=== PATIENT | female | born 1950 | race Caucasian/White ===

== ENCOUNTER 2017-04-20 09:41 | Inpatient (IN) | payer MEDICARE, BC ==
[~2017-04-20] VITALS: Ht 157.5 cm; Wt 107.9 kg
[2017-04-20] MEDS: LEVOTHYROXINE SODIUM 125 MCG TAB PO SCH (06:00)
[~2017-04-20 09:41] MED LIST: ALBUAER3 INH; ATOR20TA15 PO; CETI-1 PO; DIAZ10TA PO; DIPH25CA PO; DOCU100C15 PO; FEXO60TA PO; FLUT50SP EACH NARE; FURO40TA PO; LETR2.5T PO; LEVO125T4 PO; LOPE2TAB21 PO; MAPA500T PO; MULTTAB67 PO; OMEP40CA2 PO; PRIS50TA PO; SILE6TAB3 PO; SPIR25TA3 PO; VALS1TAB64 PO
[2017-04-20 10:00] VITALS: BP 123/64; PULSE 101; RESP 18; TEMP 98.5; O2SAT 97
[2017-04-20] MEDS ORDERED: RESP: ALBUTEROL 2.5 MG/IPRATROPIUM 0.5 MG NEB (SCH) NEB ONE (10:00)
--- NOTE | 2017-04-20 10:35 | PD ---
HPI Chief Complaint: Cold / Flu Symptoms Time Seen by Provider: 09:48 Travel History International Travel<30 days: No Contact w/Intl Traveler<30days: No Traveled to known affect area: No History of Present Illness HPI 67-year-old female came to the emergency room with history of cough and generalized weakness for past 10 days. Patient says she has not felt very good for almost 3 months now and has been getting frequent sickness in the form of URI on and off. Patient has history of G6PD deficiency and sees coater carbon paper from [facility]. Patient gets her iron transfusion at the clinic. Upon asking she said she had mentioned about her illness to the coater carbon paper there. She did mention it to her primary care and was put on one course of Z-Solo in the recent past. Patient also identifies the onset of her symptoms around the time when her septic tank was getting cleaned. She says that there was a lot of foul odor coming to her house during that time and she had lit a lot of incense lamps. After which she started feeling some scratchiness in her throat and the cough started. Patient has never been diagnosed with asthma or COPD but she does have inhalers that she uses at home. Patient is not a smoker and does not live among smokers. She was slightly tachycardic in triage. Patient says she occasionally gets some chills. [facility] Past Medical History Narrative Medical List of her past medical, surgical, social and family history is reviewed from the nursing note. Social History Tobacco Use: No Allergies-Medications (Allergen,Severity, Reaction): Coded Allergies: Sulfa (Sulfonamide Antibiotics) (Unverified Allergy, Severe, 04/20/17) blueberry (Unverified Allergy, Severe, 04/20/17) ciprofloxacin (Unverified Allergy, Severe, 04/20/17) diclofenac (Unverified Allergy, Severe, Bleeding, 04/20/17) etodolac (Unverified Allergy, Severe, Bleeding, 04/20/17) flurbiprofen (Unverified Allergy, Severe, Bleeding, 04/20/17) ibuprofen (Unverified Allergy, Severe, Bleeding, 04/20/17) indomethacin (Unverified Allergy, Severe, Bleeding, 04/20/17) ketoprofen (Unverified Allergy, Severe, Bleeding, 04/20/17) ketorolac (Unverified Allergy, Severe, Bleeding, 04/20/17) moxifloxacin (Unverified Allergy, Severe, Itching, 04/20/17) naproxen (Unverified Allergy, Severe, Bleeding, 04/20/17) oxaprozin (Unverified Allergy, Severe, Bleeding, 04/20/17) Uncoded Allergies: Beans (Allergy, Severe, 11/04/16) red wine (Allergy, Severe, 11/04/16) soya food (Allergy, Severe, 11/04/16) tonic water (Allergy, Severe, 11/04/16) Comments List of her allergies reviewed from the nursing note. Reported Meds & Prescriptions Reported Meds & Active Scripts Active Reported Valsartan 80 Mg Tab 80 Mg PO DAILY Spironolactone-Hydrochlorothiazide 25-25 Mg Tab 1 Tab PO DAILY Multiple Vitamin 1 Tab 1 Tab PO DAILY Omeprazole 40 Mg Cap 40 Mg PO BID Loperamide (Loperamide HCl) 2 Mg Tablet 1 Tab PO PRN Levothyroxine (Levothyroxine Sodium) 125 Mcg Tab 125 Mcg PO DAILY Letrozole 2.5 Mg Tab 1 Tab PO DAILY Furosemide 40 Mg Tab 40 Mg PO DAILY Fluticasone Nasal [place] 50 Mcg/Act Naspr 50 Mcg EACH NARE BID 50 mcg/spray Fexofenadine (Fexofenadine HCl) 60 Mg Tab 60 Mg PO DAILY Silenor (Doxepin (Sleep)) 6 Mg Tab 6 Mg PO HS Docusate Sodium 100 Mg Cap 100 Mg PO BID Diphenhydramine (Diphenhydramine HCl) 25 Mg Cap 25 Mg PO HS PRN Diazepam 10 Mg Tab 10 Mg PO DAILY PRN Zyrtec (Cetirizine HCl) 10 Mg Tablet 1 Tab PO DAILY PRN Pristiq 24 HR (Desvenlafaxine ER 24 HR) 50 Mg Tab 50 Mg PO DAILY Atorvastatin (Atorvastatin Calcium) 20 Mg Tab 20 Mg PO HS Proair Hfa 8.5 GM Inh (Albuterol Sulfate) 90 Mcg/Act Aer 2 Puff INH Q4-6H PRN 108 mcg/actuation Mapap (Acetaminophen) 500 Mg Tab 500 Mg PO PRN PRN Narrative Medication List of her home medications reviewed from the nursing note. Review of Systems Except as stated in HPI: all other systems reviewed are Neg Respiratory: Positive: Cough Neurologic: Positive: Weakness Physical Exam Narrative GENERAL: Awake, alert, mild distress SKIN: Focused skin assessment warm/dry. Pale HEAD: Atraumatic. Normocephalic. EYES: Pupils equal and round. No scleral icterus. No injection or drainage. ENT: No nasal bleeding or discharge. Mucous membranes pink and moist. NECK: Trachea midline. No JVD. CARDIOVASCULAR: Regular rate and rhythm. No murmur appreciated. RESPIRATORY: No accessory muscle use. End expiratory wheeze. GASTROINTESTINAL: Abdomen soft, non-tender, soft but distended. Hepatic and splenic margins not palpable. MUSCULOSKELETAL: No obvious deformities. No clubbing. No cyanosis. No edema. NEUROLOGICAL: Awake and alert. No obvious cranial nerve deficits. Motor grossly within normal limits. Normal speech. PSYCHIATRIC: Appropriate mood and affect; insight and judgment normal. Data Data Last Documented VS Orders Orders Complete Blood Count With Diff (04/20/17 10:00) Comprehensive Metabolic Panel (04/20/17 10:00) Troponin I (04/20/17 10:00) B-Type Natriuretic Peptide (04/20/17 10:00) Telescope Repairer / Telemetry HILDA.Q8H (04/20/17 10:00) Electrocardiogram (04/20/17 ) Chest, Pa & Lat (04/20/17 ) Albuterol-Ipratropium Neb (Duoneb Neb) (04/20/17 10:00) C-Reactive Protein (Crp) (04/20/17 10:00) Westergren Sedimentation Rate (04/20/17 10:00) Ceftriaxone Inj (Rocephin Inj) (04/20/17 11:45) Azithromycin Inj (Zithromax Inj) (04/20/17 11:45) Blood Culture (04/20/17 11:36) Pneumococcal Urinary Antigen (04/20/17 12:14) Legionella Urinary Antigen (04/20/17 12:14) Admit Order (Ed Use Only) (04/20/17 12:20) Influenzae A/B Antigen (04/20/17 12:18) Labs Laboratory Tests Test 04/20/17 10:15 White Blood Count 8.7 TH/MM3 Red Blood Count 3.49 MIL/MM3 Hemoglobin 11.2 GM/DL Hematocrit 34.4 % Mean Corpuscular Volume 98.8 FL Mean Corpuscular Hemoglobin 32.2 PG Mean Corpuscular Hemoglobin Concent 32.6 % Red Cell Distribution Width 14.8 % Platelet Count 369 TH/MM3 Mean Platelet Volume 7.8 FL Neutrophils (%) (Auto) 72.3 % Lymphocytes (%) (Auto) 11.6 % Monocytes (%) (Auto) 8.7 % Eosinophils (%) (Auto) 6.6 % Basophils (%) (Auto) 0.8 % Neutrophils # (Auto) 6.3 TH/MM3 Lymphocytes # (Auto) 1.0 TH/MM3 Monocytes # (Auto) 0.8 TH/MM3 Eosinophils # (Auto) 0.6 TH/MM3 Basophils # (Auto) 0.1 TH/MM3 CBC Comment AUTO DIFF Differential Total Cells Counted 100 Neutrophils % (Manual) 72 % Band Neutrophils % 7 % Lymphocytes % 8 % Monocytes % 7 % Eosinophils % 5 % Basophils % 1 % Neutrophils # (Manual) 6.9 TH/MM3 Differential Comment FINAL DIFF MANUAL Platelet Estimate NORMAL Platelet Morphology Comment NORMAL Polychromasia 2.8 % Erythrocyte Sedimentation Rate 48 mm/hr Blood Urea Nitrogen 17 MG/DL Creatinine 0.94 MG/DL Random Glucose 150 MG/DL Total Protein 8.0 GM/DL Albumin 3.5 GM/DL Calcium Level 8.9 MG/DL Alkaline Phosphatase 153 U/L Aspartate Amino Transf (AST/SGOT) 90 U/L Alanine Aminotransferase (ALT/SGPT) 50 U/L Total Bilirubin 0.5 MG/DL Sodium Level 135 MEQ/L Potassium Level 5.4 MEQ/L Chloride Level 101 MEQ/L Carbon Dioxide Level 26.4 MEQ/L Anion Gap 8 MEQ/L Estimat Glomerular Filtration Rate 59 ML/MIN Troponin I LESS THAN 0.02 NG/ML C-Reactive Protein 6.17 MG/DL B-Type Natriuretic Peptide 24 PG/ML [facility] Medical Decision Making Medical Screen Exam Complete: Yes Emergency Medical Condition: Yes Medical Record Reviewed: Yes Interpretation(s) Normal sinus rhythm, normal axis, quadrigeminy, nonspecific ST-T wave changes. Heart rate of 98 bpm Differential Diagnosis Bronchitis, COPD exacerbation, pneumonia, CHF Narrative Course 10:25 AM awaiting for the blood test results and chest x-ray. She is given a dose of DuoNeb. 12:21 PM blood test results are back and CBC shows significant leftward shift, elevated sedimentation rate and elevated CRP. Based on this and her symptoms I' m concerned for pneumonia. Chest x-ray showed peribronchial cuffing but I have started her on IV Rocephin and IV Zithromax. Given the fact that patient has been sick for a few weeks now and not getting better with outpatient treatment I explained to her she would require admission and she agreed. Patient told me that she has a little dog that has been very sick lately with various infections that her Vet is trying to treat. I discussed the case with the residents and let them know about this extra information. In my opinion patient should get ID and cardiology consult. Procedures EKG Prior to Arrival: No Diagnosis Primary Impression: Pneumonia Qualified Codes: J18.9 - Pneumonia, unspecified organism Additional Impressions: Ventricular quadrigeminy Failure of outpatient treatment Admitting Information Admitting Physician Requests: Admit Scripts Benzonatate (Tessalon Perles) 100 Mg Cap 100 MG PO TID Y for COUGH, #30 CAP 0 Refills Prov: Melony Silva MD R1 04/22/17 Amoxicillin (Amoxicillin) 500 Mg Cap 1000 MG PO TID for Infection for 7 Days, #42 CAP 0 Refills Prov: Meloyn Silva MD R1 04/22/17 Shawn Ortega MD Apr 20, 2017 10:35
[2017-04-20 10:36] LABS: AUTOMATED NEUTROPHIL # 6.3 TH/MM3 (1.8-7.7); BASOPHIL # 0.1 TH/MM3 (0-0.2); BASOPHIL % 0.8 % (0.0-2.0); EOSINOPHIL # 0.6 TH/MM3 (0-0.4); EOSINOPHIL % 6.6 % (0.0-4.0); HEMATOCRIT 34.4 % (35.0-46.0); HEMO FLAGS AUTO DIFF; LYMPH % 11.6 % (9.0-44.0); MEAN CELL VOLUME 98.8 FL (80.0-100.0); MEAN CORPUSCULAR HEMOGLOBIN 32.2 PG (27.0-34.0); MEAN CORPUSCULAR HGB CONC 32.6 % (32.0-36.0); MONO % 8.7 % (0.0-8.0); NEUT % 72.3 % (16.0-70.0); PLATELET COUNT 369 TH/MM3 (150-450); RED BLOOD COUNT 3.49 MIL/MM3 (4.00-5.30); RED CELL DISTRIBUTION WIDTH 14.8 % (11.6-17.2); WHITE BLOOD COUNT 8.7 TH/MM3 (4.0-11.0)
--- NOTE | 2017-04-20 10:39 | RADRPT ---
EXAM DATE/TIME: 04/20/2017 10:23 [place] COMPARISON: No previous studies available for comparison. EXTERNAL COMPARISON : [facility] March 02, 2017 INDICATIONS : Cough and cold like symptoms for 10 days. Short of breath. MEDICAL HISTORY : Carcinoma, breast. SURGICAL HISTORY : Total knee replacement, right. ENCOUNTER: Initial ACUITY: 1 week PAIN SCORE: 0/10 LOCATION: Bilateral chest FINDINGS: PA and lateral views of the chest demonstrate the lungs to be symmetrically aerated without evidence of mass, infiltrate or effusion. Minimal bibasilar peribronchial thickening is evident. The cardiome diastinal contours are unremarkable. Osseous structures are intact. CONCLUSION: Minimal bibasilar peribronchial thickening without infiltrate or failure.. Matteo Ledezma MD FACR on April 20, 2017 at 10:36 Board Certified Radiologist. This report was verified electronically.
[2017-04-20 11:00] VITALS: O2SAT 100
[2017-04-20 11:05] LABS: ALKALINE PHOSPHATASE 153 U/L (45-117); ALT (GPT) 50 U/L (10-53); TOTAL BILIRUBIN ADULT 0.5 MG/DL (0.2-1.0)
[2017-04-20 11:06] LABS: ANION GAP 8 MEQ/L (5-15); AST (GOT) 90 U/L (15-37); BICARBONATE 26.4 MEQ/L (21.0-32.0); BLOOD UREA NITROGEN 17 MG/DL (7-18); CHLORIDE 101 MEQ/L (98-107); GLOMERULAR FILTRATION RATE 59 ML/MIN (>89); POTASSIUM 5.4 MEQ/L (3.5-5.1); SODIUM (NA) 135 MEQ/L (136-145)
[2017-04-20 11:20] LABS: BANDS 7 % (0-6); BASOPHILS 1 % (0-2); EOSINOPHILS 5 % (0-4); NEUTROPHIL # MANUAL DIFF 6.9 TH/MM3 (1.8-7.7); POLYS (SEG NEUTROPHILS) 72 % (16-70); WBC DIFF SAMPLE 100
[2017-04-20 11:21] LABS: PLATELET ESTIMATE SMEAR NORMAL (NORMAL); PLATELET MORPHOLOGY NORMAL (NORMAL); POLYCHROMASIA 2.8 % (0.0-1.9); SCAN/DIFF FINAL DIFF MANUAL
[2017-04-20] MEDS ORDERED: cefTRIAXone INJ 1,000 MG in SODIUM CHLORIDE 0.9% INJ 100 ML IV ONE (11:45)
[2017-04-20] MEDS ORDERED: AZITHROMYCIN INJ 500 MG in SODIUM CHLOR 0.9% 250 ML INJ 250 ML IV ONE (11:45)
--- NOTE | 2017-04-20 12:59 | HHI.HP ---
HPI Service Family Medicine Primary Care Physician Unknown Admission Diagnosis pneumonia, outpatient treatment failure, quadrigeminy Diagnoses: International Travel<30 Days: No Contact w/Intl Traveler<30days: No Known Affected Area: No History of Present Illness Ms. Watson is a 67 year old female with a past medical history of G6PD, asthma, and hypertension presenting to the ED today with malaise and cough of about 1.5 weeks duration. She states that she's been sick on and off since January. She had been feeling fatigue and malaise for that time period. She went to [facility] in [place] on March 02 with a prescribed her a Z- Solo. She states that she took the whole course but it did not work. She called them back and they stated they'll take 3 weeks to work. She then felt better later. However, on last Tuesday (9 days ago) she was having her septic tank cleaned out. A foul odor went into her home. She got some oil diffusers to mask the scent and kept them near her for about 20 hours a day for the next few days. The second day of this her throat started to feel sore and she felt congested. After the smell went away she was still feeling sick. Today however she felt better. She also had a breathing treatment in the ED and felt much better. For the past week she has had chills and feelings of being hot and cold. She has also experienced night sweats a few days ago. She has also had a cough that she describes as deep and sometimes making her gag. Nonproductive. No nausea or vomiting, no chest pain, no pleuritic pain. She also mentioned that her [place] dog is sick and wondered if he could have transmitted some kind of illness to her. When changes on her EKG were discussed patient states that she had a nuclear stress test about a year ago and an EKG a few months ago. (Melony Silva MD R1) Review of Systems Constitutional: COMPLAINS OF: Chills, Change in appetite, DENIES: Weight loss, Dizziness (has Lightheadedness) Eyes: DENIES: Blurred vision Ears, nose, mouth, throat: COMPLAINS OF: Vertigo (2-3 weeks ago), Running Nose (went away with flonase), DENIES: Tinnitus Respiratory: COMPLAINS OF: Cough, Shortness of breath (going up stairs) Cardiovascular: DENIES: Chest pain, Palpitations, Lower Extremity Edema Gastrointestinal: DENIES: Bloody stools, Constipation, Diarrhea, Nausea, Vomiting Genitourinary: DENIES: Urinary frequency, Urinary incontinence Musculoskeletal: DENIES: Muscle aches, Joint Swelling Integumentary: COMPLAINS OF: Rash (from blood transfusions) Hematologic/lymphatic: DENIES: Bruising, Lymphadenopathy Neurologic: COMPLAINS OF: Headache, Poor Balance, DENIES: Paresthesias Psychiatric: COMPLAINS OF: Depression, DENIES: Anxiety (Melony Silva MD R1) Past Family Social History Past Medical History GAVE (gastric antral vascular ectasia) syndrome G6PD Anxiety Depression Asthma HTN Hypothyroidism Past Surgical History Right Knee Replacement D&C Left Lumpectomy with radiation- breast cancer in remission Tonsillectomy Reported Medications Reported Meds & Active Scripts Active Reported Valsartan 80 Mg Tab 80 Mg PO DAILY Spironolactone-Hydrochlorothiazide 25-25 Mg Tab 1 Tab PO DAILY Multiple Vitamin 1 Tab 1 Tab PO DAILY Omeprazole 40 Mg Cap 40 Mg PO BID Loperamide (Loperamide HCl) 2 Mg Tablet 1 Tab PO PRN Levothyroxine (Levothyroxine Sodium) 125 Mcg Tab 125 Mcg PO DAILY Letrozole 2.5 Mg Tab 1 Tab PO DAILY Furosemide 40 Mg Tab 40 Mg PO DAILY Fluticasone Nasal [place] 50 Mcg/Act Naspr 50 Mcg EACH NARE BID 50 mcg/spray Fexofenadine (Fexofenadine HCl) 60 Mg Tab 60 Mg PO DAILY Silenor (Doxepin (Sleep)) 6 Mg Tab 6 Mg PO HS Docusate Sodium 100 Mg Cap 100 Mg PO BID Diphenhydramine (Diphenhydramine HCl) 25 Mg Cap 25 Mg PO HS PRN Diazepam 10 Mg Tab 10 Mg PO DAILY PRN Zyrtec (Cetirizine HCl) 10 Mg Tablet 1 Tab PO DAILY PRN Pristiq 24 HR (Desvenlafaxine ER 24 HR) 50 Mg Tab 50 Mg PO DAILY Atorvastatin (Atorvastatin Calcium) 20 Mg Tab 20 Mg PO HS Proair Hfa 8.5 GM Inh (Albuterol Sulfate) 90 Mcg/Act Aer 2 Puff INH Q4-6H PRN 108 mcg/actuation Mapap (Acetaminophen) 500 Mg Tab 500 Mg PO PRN PRN (Melony Silva MD R1) Allergies: Coded Allergies: Sulfa (Sulfonamide Antibiotics) (Unverified Allergy, Severe, 04/20/17) blueberry (Unverified Allergy, Severe, 04/20/17) ciprofloxacin (Unverified Allergy, Severe, 04/20/17) diclofenac (Unverified Allergy, Severe, Bleeding, 04/20/17) etodolac (Unverified Allergy, Severe, Bleeding, 04/20/17) flurbiprofen (Unverified Allergy, Severe, Bleeding, 04/20/17) ibuprofen (Unverified Allergy, Severe, Bleeding, 04/20/17) indomethacin (Unverified Allergy, Severe, Bleeding, 04/20/17) ketoprofen (Unverified Allergy, Severe, Bleeding, 04/20/17) ketorolac (Unverified Allergy, Severe, Bleeding, 04/20/17) moxifloxacin (Unverified Allergy, Severe, Itching, 04/20/17) naproxen (Unverified Allergy, Severe, Bleeding, 04/20/17) oxaprozin (Unverified Allergy, Severe, Bleeding, 04/20/17) Uncoded Allergies: Beans (Allergy, Severe, 11/04/16) red wine (Allergy, Severe, 11/04/16) soya food (Allergy, Severe, 11/04/16) tonic water (Allergy, Severe, 11/04/16) Family History Mother- at 95, Alzheimers Father- at 70 of heart disease Social History lives with her dog in [place] Alcohol- none, but 2x/yr Tobacco- quit 14 yrs ago Illicit drugs- none (Melony Silva MD R1) Physical Exam Vital Signs Vital Signs Date Time Temp Pulse Resp B/P (MAP) Pulse Ox O2 Delivery O2 Flow Rate FiO2 04/20/17 11:00 98 16 100 Room Air 04/20/17 10:00 98.5 101 18 123/64 (83) 97 Physical Exam GENERAL: This is a well-nourished, well-developed obese patient sitting on bed, in no apparent distress. SKIN: No ecchymoses or lesions. Cool and dry. Midline scar on right knee. Hyperpigmented areas on anterior legs. HEAD: Atraumatic. Normocephalic. EYES: Pupils equal round and reactive. Extraocular motions intact. No scleral icterus. No injection or drainage. ENT: Nose without bleeding, purulent drainage or septal hematoma. Throat without erythema, tonsillar hypertrophy or exudate. Uvula midline. Airway patent. NECK: Trachea midline. No JVD or lymphadenopathy. Supple, nontender, no meningeal signs. CARDIOVASCULAR: Regular rate and rhythm without murmurs, gallops, or rubs. RESPIRATORY: Clear to auscultation. Breath sounds equal bilaterally. No wheezes , rales, or rhonchi. GASTROINTESTINAL: Abdomen soft, non-tender, nondistended. No hepato-splenomegaly , or palpable masses. No guarding. MUSCULOSKELETAL: Extremities without clubbing, cyanosis, or edema. No joint tenderness, effusion, or edema noted. No calf tenderness. NEUROLOGICAL: Awake and alert. Motor and sensory grossly within normal limits. Normal speech. Laboratory Laboratory Tests Test 04/20/17 10:15 White Blood Count 8.7 Red Blood Count 3.49 Hemoglobin 11.2 Hematocrit 34.4 Mean Corpuscular Volume 98.8 Mean Corpuscular Hemoglobin 32.2 Mean Corpuscular Hemoglobin Concent 32.6 Red Cell Distribution Width 14.8 Platelet Count 369 Mean Platelet Volume 7.8 Neutrophils (%) (Auto) 72.3 Lymphocytes (%) (Auto) 11.6 Monocytes (%) (Auto) 8.7 Eosinophils (%) (Auto) 6.6 Basophils (%) (Auto) 0.8 Neutrophils # (Auto) 6.3 Lymphocytes # (Auto) 1.0 Monocytes # (Auto) 0.8 Eosinophils # (Auto) 0.6 Basophils # (Auto) 0.1 CBC Comment AUTO DIFF Differential Total Cells Counted 100 Neutrophils % (Manual) 72 Band Neutrophils % 7 Lymphocytes % 8 Monocytes % 7 Eosinophils % 5 Basophils % 1 Neutrophils # (Manual) 6.9 Differential Comment FINAL DIFF MANUAL Platelet Estimate NORMAL Platelet Morphology Comment NORMAL Polychromasia 2.8 Erythrocyte Sedimentation Rate 48 Blood Urea Nitrogen 17 Creatinine 0.94 Random Glucose 150 Total Protein 8.0 Albumin 3.5 Calcium Level 8.9 Alkaline Phosphatase 153 Aspartate Amino Transf (AST/SGOT) 90 Alanine Aminotransferase (ALT/SGPT) 50 Total Bilirubin 0.5 Sodium Level 135 Potassium Level 5.4 Chloride Level 101 Carbon Dioxide Level 26.4 Anion Gap 8 Estimat Glomerular Filtration Rate 59 Troponin I LESS THAN 0.02 C-Reactive Protein 6.17 B-Type Natriuretic Peptide 24 (Melony Silva MD R1) Result Diagram: 04/20/17 1015 04/20/17 1015 Imaging Last Impressions Chest X-Ray 04/20/17 0000 Signed Impressions: Service Date/Time: Thursday, April 20, 2017 10:23 - CONCLUSION: Minimal bibasilar peribronchial thickening without infiltrate or failure.. Matteo Ledezma MD FACR (Melony Silva MD R1) Caprini VTE Risk Assessment Caprini VTE Risk Assessment: Mod/High Risk (score >= 2) Caprini Risk Assessment Model Point Value = 1 Point Value = 2 Point Value = 3 Point Value = 5 Age 41-60 Minor surgery BMI > 25 kg/m2 Swollen legs Varicose veins or History of unexplained or recurrent spontaneous Oral contraceptives or hormone replacement Sepsis (< 1 month) Serious lung disease, including pneumonia (< 1 month) Abnormal pulmonary function Acute myocardial infarction Congestive heart failure (< 1 month) History of inflammatory bowel disease Medical patient at bed rest Age 61-74 Arthroscopic surgery Major open surgery (> 45 min) Laparoscopic surgery (> 45 min) Malignancy Confined to bed (> 72 hours) Immobilizing plaster cast Central venous access Age >= 75 History of VTE Family history of VTE Factor V Leiden Prothrombin [id number] Lupus anticoagulant Anticardiolipin antibodies Elevated serum homocysteine Heparin-induced thrombocytopenia Other congenital or acquired thrombophilia Stroke (< 1 month) Elective arthroplasty Hip, pelvis, or leg fracture Acute spinal cord injury (< 1 month) Prophylaxis Regimen Total Risk Factor Score Risk Level Prophylaxis Regimen 0-1 Low Early ambulation 2 Moderate Order ONE of the following: *Sequential Compression Device (SCD) *Heparin 5000 units SQ BID 3-4 Higher Order ONE of the following medications: *Heparin 5000 units SQ TID *Enoxaparin/Lovenox 40 mg SQ daily (WT < 150 kg, CrCl > 30 mL/min) *Enoxaparin/Lovenox 30 mg SQ daily (WT < 150 kg, CrCl > 10-29 mL/min) *Enoxaparin/Lovenox 30 mg SQ BID (WT < 150 kg, CrCl > 30 mL/min) AND/OR *Sequential Compression Device (SCD) 5 or more Highest Order ONE of the following medications: *Heparin 5000 units SQ TID (Preferred with Epidurals) *Enoxaparin/Lovenox 40 mg SQ daily (WT < 150 kg, CrCl > 30 mL/min) *Enoxaparin/Lovenox 30 mg SQ daily (WT < 150 kg, CrCl > 10-29 mL/min) *Enoxaparin/Lovenox 30 mg SQ BID (WT < 150 kg, CrCl > 30 mL/min) AND *Sequential Compression Device (SCD) (Melony Silva MD R1) Assessment and Plan Assessment and Plan 67-year-old female with past medical history G6PD and hypertension presenting with cough and malaise of about 1 week duration. She is being admitted for possible pneumonia. Code Status Full Code Discussed Condition With Dr. Iverson (Melony Silva MD R1) Attending Attestation THIS CASE WAS DISCUSSED WITH THE RESIDENT PHYSICIANS. I HAVE REVIEWED THE RECORD AND AGREE WITH THE ABOVE NOTE AND PLAN OF CARE WAS DISCUSSED. I HAVE AUTHORIZED THE ORDER FOR ADMISSION TO AN IN-PATIENT STATUS. (Mahamed Rosas MD) Problem List: (1) Pneumonia ICD Codes: J18.9 - Pneumonia, unspecified organism Status: Acute Plan: Fatigue and malaise of a few months duration. Cough, sore throat, and congestion of about 1 week duration. No leukocytosis, but slight left shift in WBCs. CXR at admission showed PA and lateral views of the chest demonstrate the lungs to be symmetrically aerated without evidence of mass, infiltrate or effusion. Minimal bibasilar peribronchial thickening is evident. DDx: URI vs Influenza vs pneumonia * 1 dose of Azithromycin 500 mg IV given in ED for suspected pneumonia * Continue qD * 1 dose of ceftriaxone 1 g IV given in the ED suspected pneumonia * Continue qD * Ordered rapid influenza test, results pending * Influenza vaccine * Streptococcal pneumoniae and Legionella urine antigens pending * Blood cultures pending (2) Ventricular quadrigeminy ICD Codes: I49.3 - Ventricular premature depolarization Status: Acute Plan: EKG in ED showed sinus rhythm with frequent ectopic PVCs every 4th beat. Patient without CP, had a clear nuclear stress test 1 yr ago. * Monitor with telemetry (3) G6PD deficiency ICD Codes: D55.0 - Anemia due to bkqojzm-3-uziihrcop dehydrogenase [G6PD] deficiency Status: Chronic Plan: * Avoid drugs known to trigger hemolysis * Watch for signs of acute hemolytic anemia (4) Hypertension ICD Codes: I10 - Essential (primary) hypertension Status: Chronic Plan: Blood pressure well controlled in the ED * Continue at home medications * HCTZ-spironolactone 25-25 mg po daily * Valsartan 80 mg po daily * Held furosemide since patient says that she takes it once every 2-3 months * Atorvastatin 20 mg for hyperlipidemia (5) Asthma ICD Codes: J45.909 - Unspecified asthma, uncomplicated Status: Chronic Plan: * Continue patient's at-home albuterol inhaler as needed * Duo nebs every 4 hours as needed * At-home cetirizine converted to loratadine 10 mg by mouth daily * Fluticasone (6) Hypothyroidism ICD Codes: E03.9 - Hypothyroidism, unspecified Status: Chronic Plan: * Continue at home levothyroxine 125 g daily (7) GAVE (gastric antral vascular ectasia) ICD Codes: K31.819 - Angiodysplasia of stomach and duodenum without bleeding Status: Chronic Plan: * Converted at home omeprazole to pantoprazole 40 mg po BID (8) Hx of breast cancer ICD Codes: Z85.3 - Personal history of malignant neoplasm of breast Status: Chronic Plan: * Continue at home medication of letrozole 2.5 mg po daily (9) Depression ICD Codes: F32.9 - Major depressive disorder, single episode, unspecified Status: Chronic Plan: * Continue at home Desvenlafaxine 50mg po daily (10) FEN Status: Acute Plan: Fluids: tolerating PO Electrolytes: hyperkalemia noted on admission (repeat BMP shows WNL), monitor and replete as needed Nutrition: Regular diet DVT Prophylaxis: Early ambulation.Lovenox 40mg subQ q24hr GI Prophylaxis: Continue at-home medications Sleep: Continue at-home diphenhydramine and diazepam Pain management/Fever: Tylenol (Melony Silva MD R1) Physician Certification 2 Midnight Certification Type: Admission for Inpatient Services Order for Inpatient Services The services are ordered in accordance with Medicare regulations or non- Medicare payer requirements, as applicable. In the case of services not specified as inpatient-only, they are appropriately provided as inpatient services in accordance with the 2-midnight benchmark. Estimated LOS (days): 2 days is the estimated time the patient will need to remain in the hospital, assuming treatment plan goals are met and no additional complications. Post-Hospital Plan: Home (Melony Silva MD R1) Problem Qualifiers (1) Pneumonia: Qualified Codes: J18.9 - Pneumonia, unspecified organism Melony Silva MD R1 Apr 20, 2017 12:59 Mahamed Rosas MD Apr 21, 2017 11:10
[2017-04-20] MEDS ORDERED: SENNOSIDES 8.6 MG TAB PO PRN (13:30)
[2017-04-20] MEDS ORDERED: SODIUM CHLORIDE 0.9% FLUSH 10 ML FLUSH IV FLUSH PRN (13:30)
[2017-04-20] MEDS ORDERED: ONDANSETRON HCL 4 MG/2 ML VIAL IVP PRN (13:30)
[2017-04-20] MEDS ORDERED: BISACODYL 10 MG SUPP RECTAL PRN (13:30)
[2017-04-20] MEDS ORDERED: LACTULOSE SYRUP 20 GM/30 ML CUP PO PRN (13:30)
[2017-04-20] MEDS ORDERED: NALOXONE HCL 0.4 MG/ML AMP IV PUSH PRN (13:30)
[2017-04-20] MEDS ORDERED: ACETAMINOPHEN 325 MG TAB PO PRN (13:30)
[2017-04-20] MEDS ORDERED: MAGNESIUM HYDROXIDE SUSP 30 ML CUP PO PRN (13:30)
[2017-04-20 13:43] VITALS: BP 113/66; PULSE 77; RESP 18; TEMP 97.8; O2SAT 95
[2017-04-20] MEDS ORDERED: CETIRIZINE HCL 10 MG TAB PO PRN (14:30)
[2017-04-20] MEDS ORDERED: LOPERAMIDE HCL PO SCH (14:30)
[2017-04-20] MEDS ORDERED: ALBUTEROL SULFATE 90 MCG/ACT HFA 8 GM INHALER INH PRN (14:30)
[2017-04-20] MEDS: ENOXAPARIN SODIUM 40 MG/0.4 ML SYRINGE SQ SCH (15:57)
[2017-04-20 16:01] VITALS: PULSE 89
[2017-04-20 16:02] VITALS: BP 108/62; PULSE 89; RESP 17; TEMP 98.9; O2SAT 94
[2017-04-20 17:07] LABS: BICARBONATE 28.9 MEQ/L (21.0-32.0); POTASSIUM 3.8 MEQ/L (3.5-5.1)
[2017-04-20 20:00] VITALS: BP 98/55; PULSE 92; RESP 18; TEMP 98.2; O2SAT 94
[2017-04-20] MEDS ORDERED: NON-FORMULARY DRUG (Omeprazole 40 MG) PO SCH (21:00)
[2017-04-20] MEDS: DOCUSATE SODIUM 50 MG/SENNA 8.6 MG TAB PO SCH ×2 (21:00→21:58)
[2017-04-20] MEDS: PANTOPRAZOLE SOD 40 MG DELAYED RELEASE TAB PO SCH (21:56)
[2017-04-20] MEDS: ATORVASTATIN 20 MG TAB PO SCH (21:56)
[2017-04-20] MEDS: DIAZEPAM 10 MG TAB PO PRN (21:57)
[2017-04-20] MEDS: diphenhydrAMINE HCL 25 MG CAP PO PRN (21:58)
[2017-04-20] MEDS: FLUTICASONE PROPIONATE 50 MCG/ACT 16 GM NASAL SPRAY EACH NARE SCH (21:59)
[2017-04-20] MEDS: SODIUM CHLORIDE 0.9% FLUSH 10 ML FLUSH IV FLUSH SCH (21:59)
[2017-04-20] MEDS: RESP: ALBUTEROL 2.5 MG/IPRATROPIUM 0.5 MG NEB (SCH) NEB (22:07)
[2017-04-21] VITALS (10 sets, daily range): BP systolic 102–149; BP diastolic 53–78; PULSE 80–100; RESP 18–21; TEMP 97.8–98.4; O2SAT 93–99
[2017-04-21] MEDS: LEVOTHYROXINE SODIUM 125 MCG TAB PO SCH (06:14)
[2017-04-21 06:44] LABS: ALKALINE PHOSPHATASE 134 U/L (45-117); TOTAL BILIRUBIN ADULT 0.3 MG/DL (0.2-1.0)
[2017-04-21 06:52] LABS: ALT (GPT) 37 U/L (10-53); ANION GAP 9 MEQ/L (5-15); AST (GOT) 45 U/L (15-37); BICARBONATE 26.2 MEQ/L (21.0-32.0); BLOOD UREA NITROGEN 17 MG/DL (7-18); CHLORIDE 103 MEQ/L (98-107); GLOMERULAR FILTRATION RATE 58 ML/MIN (>89); SODIUM (NA) 138 MEQ/L (136-145)
[2017-04-21 06:58] LABS: AUTOMATED NEUTROPHIL # 5.2 TH/MM3 (1.8-7.7); BASOPHIL # 0.1 TH/MM3 (0-0.2); EOSINOPHIL # 0.6 TH/MM3 (0-0.4); EOSINOPHIL % 6.9 % (0.0-4.0); HEMATOCRIT 35.3 % (35.0-46.0); HEMO FLAGS DIFF FINAL; LYMPH % 17.8 % (9.0-44.0); LYMPHOCYTE # 1.4 TH/MM3 (1.0-4.8); MEAN CELL VOLUME 103.3 FL (80.0-100.0); MEAN CORPUSCULAR HEMOGLOBIN 31.5 PG (27.0-34.0); MEAN CORPUSCULAR HGB CONC 30.5 % (32.0-36.0); MONO % 9.8 % (0.0-8.0); NEUT % 64.5 % (16.0-70.0); PLATELET COUNT 316 TH/MM3 (150-450); RED BLOOD COUNT 3.42 MIL/MM3 (4.00-5.30); RED CELL DISTRIBUTION WIDTH 15.3 % (11.6-17.2); WHITE BLOOD COUNT 8.1 TH/MM3 (4.0-11.0)
[2017-04-21] MEDS: RESP: ALBUTEROL 2.5 MG/IPRATROPIUM 0.5 MG NEB (SCH) NEB ×4 (07:31→20:42)
--- NOTE | 2017-04-21 08:16 | HHI.FPPN ---
Subjective Remarks FM Attending Note: Patient seen and examined. S: Chart and all resident physician notes reviewed. In summary this is a 67 year old female who was admitted with an admission diagnosis of Pneumonia, Outpatient Treatment Failure. Mrs. Watson has a h/o G6PD deficiency with previous hemolytic epsisodes. She reports respiratory symptoms with congestion , mild hoarseness and productive cough over the last month. She has been treated as an outpatient with azithromycin without resolution. She quit cigarettes 14 years ago but had approximately [id number] to her credit prior to that. No previous history of asthma has been noted. She has had no fever or chills. No shortness of breath. She notes that the cough and tightness in her chest has improved with the nebulizer treatments. Objective Vitals Vital Signs Date Time Temp Pulse Resp B/P (MAP) Pulse Ox O2 Delivery O2 Flow Rate FiO2 04/21/17 04:00 98.2 86 18 149/61 (90) 93 04/21/17 04:00 Room Air 04/21/17 03:57 89 04/21/17 00:00 Room Air 04/21/17 00:00 97.9 94 18 116/53 (74) 97 04/21/17 00:00 92 04/20/17 20:00 98.2 92 18 98/55 (69) 94 04/20/17 20:00 92 04/20/17 20:00 Room Air 04/20/17 16:02 98.9 89 17 108/62 (77) 94 04/20/17 16:01 89 04/20/17 13:43 97.8 77 18 113/66 (82) 95 04/20/17 11:00 98 16 100 Room Air 04/20/17 10:00 98.5 101 18 123/64 (83) 97 I/O 04/20/17 04/20/17 04/20/17 04/21/17 04/21/17 04/21/17 07:00 15:00 23:00 07:00 15:00 23:00 Intake Total 360 ml Balance 360 ml Intake Oral 360 ml # Voids 1 4 Result Diagram: 04/21/17 0551 04/21/17 0551 Other Results Item Value Date Time Erythrocyte Sedimentation Rate 48 mm/hr H 04/20/17 1015 Total Bilirubin 0.5 MG/DL 04/20/17 1015 Aspartate Amino Transf (AST/SGOT) 90 U/L H 04/20/17 1015 Alanine Aminotransferase (ALT/SGPT) 50 U/L 04/20/17 1015 Alkaline Phosphatase 153 U/L H 04/20/17 1015 Troponin I LESS THAN 0.02 NG/ML L 04/20/17 1015 C-Reactive Protein 6.17 MG/DL H 04/20/17 1015 Aspartate Amino Transf (AST/SGOT) 45 U/L H 04/21/17 0551 Alanine Aminotransferase (ALT/SGPT) 37 U/L 04/21/17 0551 Alkaline Phosphatase 134 U/L H 04/21/17 0551 Imaging Last 48 hours Impressions Chest X-Ray 04/20/17 0000 Signed Impressions: Service Date/Time: Tuesday, April 20, 2017 10:23 - CONCLUSION: Minimal bibasilar peribronchial thickening without infiltrate or failure.. Matteo Ledezma MD FACR Objective Remarks O. CONSTITUTIONAL/GEN: normally nourished with increased BMI, in NAD. EYES: conjunctiva normal, PERRLA, EOMI. ENT: Mouth and pharynx normal. LUNGS: scattered rhonchi with prolonged expiratory phase, respiratory effort is normal. CARDIOVASCULAR: RR without murmur or gallop. No significant edema. GI/ABD: soft without masses, without organomegaly. NEURO: No focal deficits. SKIN: color normal, no rashes noted. HEME/LYMPH: no bruising, petechia or significant adenopathy MUSC: back is normal in appearance. Extremities are normal in appearance. PSYCH/MENTAL STATUS: Alert and oriented x 3. A/P Assessment and Plan [id number] female with past medical history G6PD and hypertension presenting with cough and malaise of about 1 week duration. She is being admitted for possible pneumonia. Problem List: (1) Pneumonia ICD Codes: J18.9 - Pneumonia, unspecified organism Status: Acute Plan: Fatigue and malaise of a few months duration. Cough, sore throat, and congestion of about 1 week duration. No leukocytosis, but slight left shift in WBCs. CXR at admission showed PA and lateral views of the chest demonstrate the lungs to be symmetrically aerated without evidence of mass, infiltrate or effusion. Minimal bibasilar peribronchial thickening is evident. DDx: URI vs Influenza vs pneumonia * 1 dose of Azithromycin 500 mg IV given in ED for suspected pneumonia * Continue qD * 1 dose of ceftriaxone 1 g IV given in the ED suspected pneumonia * Continue qD * Ordered rapid influenza test, results pending * Influenza vaccine * Streptococcal pneumoniae and Legionella urine antigens pending * Blood cultures pending 04/21/17 Overall her symptoms have improved since admission. She notes improvement in cough and congestion with nebulizer treatments. We'll continue current treatment for the another 24 hours and reassess. Cultures are so far negative. (2) Ventricular quadrigeminy ICD Codes: I49.3 - Ventricular premature depolarization Status: Acute Plan: EKG in ED showed sinus rhythm with frequent ectopic PVCs every 4th beat. Patient without CP, had a clear nuclear stress test 1 yr ago. * Monitor with telemetry (3) G6PD deficiency ICD Codes: D55.0 - Anemia due to eaknrww-7-ivqufzdpe dehydrogenase [G6PD] deficiency Status: Chronic Plan: * Avoid drugs known to trigger hemolysis * Watch for signs of acute hemolytic anemia (4) Hypertension ICD Codes: I10 - Essential (primary) hypertension Status: Chronic Plan: Blood pressure well controlled in the ED * Continue at home medications * HCTZ-spironolactone 25-25 mg po daily * Valsartan 80 mg po daily * Held furosemide since patient says that she takes it once every 2-3 months * Atorvastatin 20 mg for hyperlipidemia (5) Asthma ICD Codes: J45.909 - Unspecified asthma, uncomplicated Status: Chronic Plan: * Continue patient's at-home albuterol inhaler as needed * Duo nebs every 4 hours as needed * At-home cetirizine converted to loratadine 10 mg by mouth daily * Fluticasone (6) Hypothyroidism ICD Codes: E03.9 - Hypothyroidism, unspecified Status: Chronic Plan: * Continue at home levothyroxine 125 g daily (7) GAVE (gastric antral vascular ectasia) ICD Codes: K31.819 - Angiodysplasia of stomach and duodenum without bleeding Status: Chronic Plan: * Converted at home omeprazole to pantoprazole 40 mg po BID (8) Hx of breast cancer ICD Codes: Z85.3 - Personal history of malignant neoplasm of breast Status: Chronic Plan: * Continue at home medication of letrozole 2.5 mg po daily (9) Depression ICD Codes: F32.9 - Major depressive disorder, single episode, unspecified Status: Chronic Plan: * Continue at home Desvenlafaxine 50mg po daily (10) Elevated glucose level ICD Codes: R73.09 - Other abnormal glucose Plan: 04/21/17 On questioning the patient reports that her fasting glucoses have been mildly elevated in the past in the range of 105 or 106. No definitive diagnosis of diabetes. We'll continue to monitor glucose levels and check a hemoglobin A1c. We did discuss lifestyle changes that can improve insulin sensitivity and help lower blood glucose levels.. (11) FEN Status: Acute Plan: Fluids: tolerating PO Electrolytes: hyperkalemia noted on admission (repeat BMP shows WNL), monitor and replete as needed Nutrition: Regular diet DVT Prophylaxis: Early ambulation.Lovenox 40mg subQ q24hr GI Prophylaxis: Continue at-home medications Sleep: Continue at-home diphenhydramine and diazepam Pain management/Fever: Tylenol Problem Qualifiers (1) Pneumonia: Qualified Codes: J18.9 - Pneumonia, unspecified organism Mahamed Rosas MD Apr 21, 2017 08:16
[2017-04-21] MEDS ORDERED: DESVENLAFAXINE 50 MG PO SCH ×2 (09:00)
[2017-04-21] MEDS ORDERED: PT:LETROZOLE 2.5 MG PO SCH (09:00)
[2017-04-21] MEDS: FLUTICASONE PROPIONATE 50 MCG/ACT 16 GM NASAL SPRAY EACH NARE SCH ×2 (09:00→21:00)
[2017-04-21] MEDS ORDERED: FEXOFENADINE 60 MG PO SCH (09:00)
[2017-04-21] MEDS: VALSARTAN 80 MG TAB PO SCH ×2 (09:00→09:13)
[2017-04-21] MEDS: DOCUSATE SODIUM 50 MG/SENNA 8.6 MG TAB PO SCH ×2 (09:00→21:00)
[2017-04-21] MEDS ORDERED: NON-FORMULARY DRUG (Letrozole 1 TAB) PO SCH (09:00)
[2017-04-21] MEDS: LORATADINE 10 MG TAB PO SCH (09:13)
[2017-04-21] MEDS: SPIRONOLACTONE/HCTZ 25 MG/25 MG TAB PO SCH (09:13)
[2017-04-21] MEDS: SODIUM CHLORIDE 0.9% FLUSH 10 ML FLUSH IV FLUSH SCH ×2 (09:13→22:18)
[2017-04-21] MEDS: PANTOPRAZOLE SOD 40 MG DELAYED RELEASE TAB PO SCH ×2 (09:13→22:17)
[2017-04-21] MEDS ORDERED: INFLUENZA VIRUS VACCINE (QUADRIVALENT) 0.5 ML SYR IM ONE (10:00)
[2017-04-21] MEDS ORDERED: cefTRIAXone INJ 1,000 MG in SODIUM CHLORIDE 0.9% INJ 100 ML IV SCH (12:00)
[2017-04-21] MEDS ORDERED: AZITHROMYCIN INJ 500 MG in SODIUM CHLOR 0.9% 250 ML INJ 250 ML IV SCH (12:00)
--- NOTE | 2017-04-21 13:56 | EKG ---
Date Performed: 04/20/2017 Time Performed: 10:08:02 PTAGE: 67 years EKG: Sinus rhythm WITH FREQUENT PVCs ABNORMAL RHYTHM ECG NO PREVIOUS TRACING DOCTOR: Vipul Barroso Interpretating Date/Time 04/21/2017 13:54:57
[2017-04-21] MEDS: ENOXAPARIN SODIUM 40 MG/0.4 ML SYRINGE SQ SCH (15:11)
[2017-04-21 17:38] LABS: HEMOGLOBIN A1b 0.7 %; HEMOGLOBIN Ao 87.6 %; HEMOGLOBIN F 1.2 %; HEMOGLOBIN LA1C 1.7 %; HEMOGLOBIN P3 4.3 %
[2017-04-21 20:45] LABS: BOR. HOLMESII NOT DETECTED (NOT DETECT); BOR. PARA/BRONCH NOT DETECTED (NOT DETECT); BOR. PERTUSSIS NOT DETECTED (NOT DETECT); INFLUENZA B NOT DETECTED (NOT DETECT); RESP SYNCYTIAL VIRUS A NOT DETECTED (NOT DETECT); RESP SYNCYTIAL VIRUS B NOT DETECTED (NOT DETECT)
[2017-04-21] MEDS: diphenhydrAMINE HCL 25 MG CAP PO PRN (22:17)
[2017-04-21] MEDS: ATORVASTATIN 20 MG TAB PO SCH (22:18)
[2017-04-21] MEDS: DIAZEPAM 10 MG TAB PO PRN (22:18)
[2017-04-22 00:51] VITALS: BP 113/56; PULSE 88; RESP 20; TEMP 99.4; O2SAT 95
[2017-04-22 03:47] VITALS: PULSE 92
[2017-04-22 05:45] VITALS: BP 105/55; PULSE 80; RESP 20; TEMP 98; O2SAT 94
[2017-04-22] MEDS: LEVOTHYROXINE SODIUM 125 MCG TAB PO SCH (06:24)
[2017-04-22] MEDS: RESP: ALBUTEROL 2.5 MG/IPRATROPIUM 0.5 MG NEB (SCH) NEB (07:27)
[2017-04-22 08:00] VITALS: BP 121/72; PULSE 61; PULSE 97; RESP 18; TEMP 97.9; O2SAT 94
[2017-04-22] MEDS: DOCUSATE SODIUM 50 MG/SENNA 8.6 MG TAB PO SCH (09:00)
[2017-04-22] MEDS: VALSARTAN 80 MG TAB PO SCH (09:00)
[2017-04-22] MEDS ORDERED: AMOX500C PO (09:07)
[2017-04-22] MEDS ORDERED: BENZ100 PO (09:07)
--- NOTE | 2017-04-22 09:09 | HHI.DCPOC ---
Discharge Care Plan Diagnosis: (1) Acute bronchitis due to Rhinovirus (2) Pneumonia Goals to Promote Your Health * To prevent worsening of your condition and complications * To maintain your health at the optimal level Directions to Meet Your Goals Take amoxicillin 1000mg three times a day until course is completed. Can take Tessalon Perles as needed for cough. Can increase use of albuterol inhaler to 4 times a day for the next 5 days. Take your medications as prescribed Follow your dietary instruction Follow activity as directed Keep your appointments as scheduled Take your immunizations and boosters as scheduled If your symptoms worsen call your PCP, if no PCP go to Urgent Care Center or Emergency Room Smoking is Dangerous to Your Health. Avoid second hand smoke Call the 24-hour hour crisis hotline for domestic abuse at Melony Silva MD R1 Apr 22, 2017 09:09
--- NOTE | 2017-04-22 09:10 | HHI.FPPN ---
Subjective Remarks No acute events overnight. Feels well this morning and wants to go home. (Koko Iverson MD) Objective Vitals Vital Signs Date Time Temp Pulse Resp B/P (MAP) Pulse Ox O2 Delivery O2 Flow Rate FiO2 04/22/17 05:45 98.0 80 20 105/55 (72) 94 04/22/17 03:47 92 04/22/17 00:51 99.4 88 20 113/56 (75) 95 04/22/17 00:51 Room Air 04/21/17 23:44 92 04/21/17 20:00 98.4 100 21 136/78 (97) 98 04/21/17 20:00 Room Air 04/21/17 19:48 100 04/21/17 16:00 98.1 99 18 120/67 (84) 95 04/21/17 12:00 98.1 80 18 122/68 (86) 95 I/O 04/21/17 04/21/17 04/21/17 04/22/17 04/22/17 04/22/17 07:00 15:00 23:00 07:00 15:00 23:00 Intake Total 600 ml 920 ml Balance 600 ml 920 ml Intake Oral 600 ml 920 ml # Voids 4 4 5 # Bowel Movements 1 1 (Koko Iverson MD) Result Diagram: 04/21/17 0551 04/21/17 0551 Objective Remarks CONSTITUTIONAL/GEN: normally nourished with increased BMI, in NAD. LUNGS: CTAB, no crackles or wheezes, respiratory effort is normal. CARDIOVASCULAR: NRRR. No murmur No significant edema. GI/ABD: soft without masses, without organomegaly. SKIN: color normal, no rashes noted. MUSC: Extremities are normal in appearance. PSYCH/MENTAL STATUS: Alert and oriented x 3. (Koko Ievrson MD) A/P Assessment and Plan 67-year-old female with past medical history G6PD and hypertension presenting with: (Koko Iverson MD) Attending Attestation Patient seen and examined. Case reviewed and discussed with the resident team. Agree with plan of care as discussed with me and documented in the resident note. (Mahamed Rosas MD) Problem List: (1) Acute bronchitis due to Rhinovirus ICD Codes: J20.6 - Acute bronchitis due to rhinovirus Status: Acute Plan: URI symptoms, improved with breathing treatment and antibiotics since admission Flu antigen negative CRP improving No leukocytosis Resp panel positive for rhinovirus - Discharge home - Albuterol inhaler QID for 5-7 days - Tessalon pearls PRN for cough - Given improvement with antibiotics, it is possible there is a bacterial component to her bronchitis as well - Amoxicillin 1 gm PO TID x 7 days - s/p 2 days Rocephin and azithromycin (2) Pneumonia ICD Codes: J18.9 - Pneumonia, unspecified organism Status: Acute Plan: See above plan (3) Ventricular quadrigeminy ICD Codes: I49.3 - Ventricular premature depolarization Status: Acute Plan: EKG in ED showed sinus rhythm with frequent ectopic PVCs every 4th beat. Patient without CP, had a clear nuclear stress test 1 yr ago. Telemetry showed this same rhythm intermittently - F/u with PCP; consider repeat EKG as outpatient (4) G6PD deficiency ICD Codes: D55.0 - Anemia due to tpthjat-3-zsnqyvucs dehydrogenase [G6PD] deficiency Status: Chronic Plan: * Avoid drugs known to trigger hemolysis * Watch for signs of acute hemolytic anemia (5) Hypertension ICD Codes: I10 - Essential (primary) hypertension Status: Chronic Plan: Blood pressure well controlled in the ED * Continue at home medications * HCTZ-spironolactone 25-25 mg po daily * Valsartan 80 mg po daily * Held furosemide since patient says that she takes it once every 2-3 months * Atorvastatin 20 mg for hyperlipidemia (6) Asthma ICD Codes: J45.909 - Unspecified asthma, uncomplicated Status: Chronic Plan: * Continue patient's at-home albuterol inhaler as needed * Duo nebs every 4 hours as needed * At-home cetirizine converted to loratadine 10 mg by mouth daily * Fluticasone (7) Hypothyroidism ICD Codes: E03.9 - Hypothyroidism, unspecified Status: Chronic Plan: * Continue at home levothyroxine 125 g daily (8) GAVE (gastric antral vascular ectasia) ICD Codes: K31.819 - Angiodysplasia of stomach and duodenum without bleeding Status: Chronic Plan: * Converted at home omeprazole to pantoprazole 40 mg po BID (9) Hx of breast cancer ICD Codes: Z85.3 - Personal history of malignant neoplasm of breast Status: Chronic Plan: * Continue at home medication of letrozole 2.5 mg po daily (10) Depression ICD Codes: F32.9 - Major depressive disorder, single episode, unspecified Status: Chronic Plan: * Continue at home Desvenlafaxine 50mg po daily (11) Elevated glucose level ICD Codes: R73.09 - Other abnormal glucose Plan: 04/21/17 On questioning the patient reports that her fasting glucoses have been mildly elevated in the past in the range of 105 or 106. No definitive diagnosis of diabetes. We'll continue to monitor glucose levels and check a hemoglobin A1c. We did discuss lifestyle changes that can improve insulin sensitivity and help lower blood glucose levels 04/22/17 Hemoglobin A1C within normal limits (no DM or pre-DM) - F/u with PCP (12) FEN Status: Acute Plan: Fluids: tolerating PO Electrolytes: hyperkalemia noted on admission (repeat BMP shows WNL), monitor and replete as needed Nutrition: Regular diet DVT Prophylaxis: Early ambulation.Lovenox 40mg subQ q24hr GI Prophylaxis: Continue at-home medications Sleep: Continue at-home diphenhydramine and diazepam Pain management/Fever: Tylenol (Koko Iverson MD) Problem Qualifiers (1) Pneumonia: Qualified Codes: J18.9 - Pneumonia, unspecified organism Koko Iverson MD Apr 22, 2017 09:10 Mahamed Rosas MD Apr 22, 2017 09:19
[2017-04-22] MEDS: SODIUM CHLORIDE 0.9% FLUSH 10 ML FLUSH IV FLUSH SCH (09:48)
[2017-04-22] MEDS: PANTOPRAZOLE SOD 40 MG DELAYED RELEASE TAB PO SCH (09:48)
[2017-04-22] MEDS: LORATADINE 10 MG TAB PO SCH (09:49)
[2017-04-22] MEDS: SPIRONOLACTONE/HCTZ 25 MG/25 MG TAB PO SCH (09:49)
[2017-04-22] MEDS: FLUTICASONE PROPIONATE 50 MCG/ACT 16 GM NASAL SPRAY EACH NARE SCH (09:50)
[2017-04-22 11:26] LABS: AUTOMATED NEUTROPHIL # 4.4 TH/MM3 (1.8-7.7); BASOPHIL % 0.6 % (0.0-2.0); EOSINOPHIL # 0.4 TH/MM3 (0-0.4); EOSINOPHIL % 5.8 % (0.0-4.0); HEMATOCRIT 31.1 % (35.0-46.0); LYMPHOCYTE # 0.9 TH/MM3 (1.0-4.8); MEAN CELL VOLUME 99.3 FL (80.0-100.0); MEAN CORPUSCULAR HEMOGLOBIN 32.7 PG (27.0-34.0); MONO % 8.2 % (0.0-8.0); NEUT % 70.4 % (16.0-70.0); PLATELET COUNT 179 TH/MM3 (150-450); RED BLOOD COUNT 3.13 MIL/MM3 (4.00-5.30); RED CELL DISTRIBUTION WIDTH 15.1 % (11.6-17.2); WHITE BLOOD COUNT 6.3 TH/MM3 (4.0-11.0)
[2017-04-22 11:30] LABS: ANION GAP 13 MEQ/L (5-15); BICARBONATE 22.9 MEQ/L (21.0-32.0); CHLORIDE 102 MEQ/L (98-107); POTASSIUM 3.8 MEQ/L (3.5-5.1); SODIUM (NA) 138 MEQ/L (136-145)
[2017-04-22 11:31] LABS: AST (GOT) 44 U/L (15-37); GLOMERULAR FILTRATION RATE 60 ML/MIN (>89)
[2017-04-22 11:33] LABS: BLOOD UREA NITROGEN 14 MG/DL (7-18)
[2017-04-22 11:34] LABS: ALKALINE PHOSPHATASE 126 U/L (45-117); ALT (GPT) 35 U/L (10-53); TOTAL BILIRUBIN ADULT 0.2 MG/DL (0.2-1.0)
[2017-04-22 11:51] LABS: HEMO FLAGS AUTO DIFF
[2017-04-22 11:52] LABS: PLATELET ESTIMATE SMEAR NORMAL (NORMAL); PLATELET MORPHOLOGY NORMAL (NORMAL); SCAN/DIFF AUTO DIFF CONFIRMED
--- NOTE | 2017-04-27 11:22 | HHI.DS ---
Discharge Summary Admission Date Apr 20, 2017 at 12:21 pm Discharge Date: Apr 22, 2017 Admitting Diagnosis pneumonia, outpatient treatment failure, quadrigeminy (1) Acute bronchitis due to Rhinovirus Diagnosis: Principal ICD Codes: J20.6 - Acute bronchitis due to rhinovirus Status: Acute (2) Pneumonia Diagnosis: Principal ICD Codes: J18.9 - Pneumonia, unspecified organism Status: Acute (3) Ventricular quadrigeminy Diagnosis: Secondary ICD Codes: I49.3 - Ventricular premature depolarization Status: Acute (4) G6PD deficiency Diagnosis: Secondary ICD Codes: D55.0 - Anemia due to zeefpju-6-vingjvfsz dehydrogenase [G6PD] deficiency Status: Chronic (5) Hypertension Diagnosis: Secondary ICD Codes: I10 - Essential (primary) hypertension Status: Chronic (6) Asthma Diagnosis: Secondary ICD Codes: J45.909 - Unspecified asthma, uncomplicated Status: Chronic (7) Hypothyroidism Diagnosis: Secondary ICD Codes: E03.9 - Hypothyroidism, unspecified Status: Chronic (8) GAVE (gastric antral vascular ectasia) Diagnosis: Secondary ICD Codes: K31.819 - Angiodysplasia of stomach and duodenum without bleeding Status: Chronic (9) Hx of breast cancer Diagnosis: Secondary ICD Codes: Z85.3 - Personal history of malignant neoplasm of breast Status: Chronic (10) Depression Diagnosis: Secondary ICD Codes: F32.9 - Major depressive disorder, single episode, unspecified Status: Chronic (11) Elevated glucose level Diagnosis: Secondary ICD Codes: R73.09 - Other abnormal glucose Brief History Ms. Watson is a 67 year old female with a past medical history of G6PD, asthma, and hypertension presenting to the ED today with malaise and cough of about 1.5 weeks duration. She states that she's been sick on and off since January. She had been feeling fatigue and malaise for that time period. She went to [facility] in [place] on March 02 with a prescribed her a Z- Solo. She states that she took the whole course but it did not work. She called them back and they stated they'll take 3 weeks to work. She then felt better later. However, on last Tuesday (9 days ago) she was having her septic tank cleaned out. A foul odor went into her home. She got some oil diffusers to mask the scent and kept them near her for about 20 hours a day for the next few days. The second day of this her throat started to feel sore and she felt congested. After the smell went away she was still feeling sick. Today however she felt better. She also had a breathing treatment in the ED and felt much better. For the past week she has had chills and feelings of being hot and cold. She has also experienced night sweats a few days ago. She has also had a cough that she describes as deep and sometimes making her gag. Nonproductive. No nausea or vomiting, no chest pain, no pleuritic pain. She also mentioned that her Sinhala dog is sick and wondered if he could have transmitted some kind of illness to her. When changes on her EKG were discussed patient states that she had a nuclear stress test about a year ago and an EKG a few months ago. Significant Findings Item Value Date Time White Blood Count 6.3 TH/MM3 04/22/17 0832 Hemoglobin 10.3 GM/DL L 04/22/17 0832 Hematocrit 31.1 % L 04/22/17 0832 Platelet Count 179 TH/MM3 # 04/22/17 0832 C-Reactive Protein 3.70 MG/DL H 04/22/17 0832 Sodium Level 138 MEQ/L 04/22/17 0832 Potassium Level 3.8 MEQ/L 04/22/17 0832 Chloride Level 102 MEQ/L 04/22/17 0832 Carbon Dioxide Level 22.9 MEQ/L 04/22/17 0832 Blood Urea Nitrogen 14 MG/DL 04/22/17 0832 Creatinine 0.93 MG/DL 04/22/17 0832 Estimat Glomerular Filtration Rate 60 ML/MIN L 04/22/17 0832 Random Glucose 157 MG/DL H 04/22/17 0832 Hemoglobin A1c 4.3 % 04/21/17 0551 Rhinovirus (PCR) DETECTED H 04/21/17 1530 Legionella Antigen - Final Complete 04/20/17 1750 Urine Clean Catch PRESUMPTIVE NEGATIVE FOR LEGIONELLA P... Influenza Types A,B Antigen (JERRELL) - Final Complete 04/20/17 1750 Nasal Washing NEGATIVE FOR FLU A AND B ANTIGEN.... Aerobic Blood Culture - Final Complete 04/20/17 1617 Blood Peripheral NO GROWTH IN 5 DAYS Aerobic Blood Culture - Final Complete 04/20/17 1612 Blood Peripheral NO GROWTH IN 5 DAYS Imaging Last Impressions Chest X-Ray 04/20/17 0000 Signed Impressions: Service Date/Time: Thursday, April 20, 2017 10:23 - CONCLUSION: Minimal bibasilar peribronchial thickening without infiltrate or failure.. Matteo Ledezma MD FACR PE at Discharge CONSTITUTIONAL/GEN: normally nourished with increased BMI, in NAD. LUNGS: CTAB, no crackles or wheezes, respiratory effort is normal. CARDIOVASCULAR: NRRR. No murmur No significant edema. GI/ABD: soft without masses, without organomegaly. SKIN: color normal, no rashes noted. MUSC: Extremities are normal in appearance. PSYCH/MENTAL STATUS: Alert and oriented x 3. Hospital Course 67 yo female with h/o G6PD and GAVE syndrome admitted for URI symptoms. Initially started on empiric Abx for pneumonia and improved with Abx (rocephin + azithromycin) + symptomatic care. Work-up ultimately revealed positive rhinovirus. Medically stable for discharge with final diagnosis being acute bronchitis from rhinovirus infection +/- superimposed bacterial pneumonia. She was discharged with amoxicillin as below to complete ~9 days of treatment. Of note, her EKG and telemetry revealed ventricular quadrigeminy. She is asymptomatic with this at present but her PCP should be made aware. Patient was informed. Pt Condition on Discharge: Stable Discharge Disposition: Discharge Home Discharge Instructions DIET: Follow Instructions for: Heart Healthy Diet Activities you can perform: Regular-No Restrictions Follow up Referrals: PCP Follow-up - 1 Week New Medications: Amoxicillin (Amoxicillin) 500 Mg Cap 1000 MG PO TID for Infection for 7 Days, #42 CAP 0 Refills Benzonatate (Tessalon Perles) 100 Mg Cap 100 MG PO TID PRN for COUGH, #30 CAP 0 Refills Continued Medications: Acetaminophen (Mapap) 500 Mg Tab 500 MG PO PRN PRN for PAIN, TAB 0 Refills Albuterol 8.5 GM Inh (Proair Hfa 8.5 GM Inh) 90 Mcg/Act Aer 2 PUFF INH Q4-6H PRN for SHORTNESS OF BREATH, #1 INHALER 0 Refills 108 mcg/actuation Atorvastatin (Atorvastatin) 20 Mg Tab 20 MG PO HS for Cholesterol Management, #30 TAB 0 Refills Cetirizine HCl (Zyrtec) 10 Mg Tablet 1 TAB PO DAILY PRN for PRN Desvenlafaxine ER 24 HR (Pristiq 24 HR) 50 Mg Tab 50 MG PO DAILY, TAB Diazepam (Diazepam) 10 Mg Tab 10 MG PO DAILY PRN for SLEEP, TAB 0 Refills Diphenhydramine (Diphenhydramine) 25 Mg Cap 25 MG PO HS PRN for INSOMNIA, CAP 0 Refills Docusate Sodium (Docusate Sodium) 100 Mg Cap 100 MG PO BID for Prevent Constipation, #60 CAP 0 Refills Doxepin (Sleep) (Silenor) 6 Mg Tab 6 MG PO HS for Insomnia, #30 TAB 0 Refills Fexofenadine (Fexofenadine) 60 Mg Tab 60 MG PO DAILY for Allergy Management, #60 TAB 0 Refills Fluticasone Nasal [place] (Fluticasone Nasal [place]) 50 Mcg/Act Naspr 50 MCG EACH NARE BID for Allergy Management, #1 BOTTLE 0 Refills 50 mcg/spray Furosemide (Furosemide) 40 Mg Tab 40 MG PO DAILY, #30 TAB 0 Refills Letrozole (Letrozole) 2.5 Mg Tab 1 TAB PO DAILY Levothyroxine (Levothyroxine) 125 Mcg Tab 125 MCG PO DAILY for Thyroid, #30 TAB 0 Refills Loperamide HCl (Loperamide) 2 Mg Tablet 1 TAB PO PRN Multiple Vitamin (Multiple Vitamin) 1 Tab 1 TAB PO DAILY for Nutritional Supplement, TAB 0 Refills Omeprazole (Omeprazole) 40 Mg Cap 40 MG PO BID, #30 CAP 0 Refills Spironolactone-Hydrochlorothiazide (Spironolactone-Hydrochlorothiazide) 25-25 Mg Tab 1 TAB PO DAILY, #30 TAB 0 Refills Valsartan (Valsartan) 80 Mg Tab 80 MG PO DAILY, #30 TAB 0 Refills Koko Iverson MD Apr 27, 2017 11:22 am
== END 2017-04-22 11:00 | disposition home or self-care (01) | DRG 202 ==
LOC: NEPD 09:41 → NEDA 12:21 → N04A 13:29
PROVIDERS: ADMIT Family Medicine; ATTEND Family Medicine
DX: J20.6 Acute bronchitis due to rhinovirus (principal); J15.9 Unspecified bacterial pneumonia; D55.0 Anemia due to glucose-6-phosphate dehydrogenase [G6PD] deficiency; I10 Essential (primary) hypertension; I49.3 Ventricular premature depolarization; J45.909 Unspecified asthma, uncomplicated; E03.9 Hypothyroidism, unspecified; K31.819 Angiodysplasia of stomach and duodenum without bleeding; F32.9 Major depressive disorder, single episode, unspecified; R73.09 Other abnormal glucose; Z96.651 Presence of right artificial knee joint; Z85.3 Personal history of malignant neoplasm of breast; Z87.891 Personal history of nicotine dependence; Z23 Encounter for immunization
CPT/HCPCS: 71020; 76937; 80048; 80053; 83036; 83880; 84484; 85007; 85025; 85027; 85652; 86140; 87040; 87449; 87633; 87804; 90686; 93005; 94640; 94664; 96365; 96375; J0456; J0696; J1650; J7050; Q2038

== ENCOUNTER 2018-04-16 10:34 | Inpatient (IN) ==
[2018-04-16] MEDS ORDERED: MethylPREDNISolone Sod Succinate Inj 125 MG/2 ML Vial IV.PUSH ONE (11:06)
--- NOTE | 2018-04-16 11:34 | ED ---
HPI General Chief complaint: Respiratory Symptoms Stated complaint: SOB Time Seen by Provider: 04/16/18 10:56 Source: patient Mode of arrival: ambulatory Limitations: no limitations History of Present Illness HPI narrative: Patient is a 68-year-old female presenting to the emerge department for evaluation of shortness of breath. Patient states is been ongoing for the last 2 days. She reports a cough which is nonproductive, she denies any fevers, chills, chest pain, orthopnea, edema or bloating. She states that she has seasonal asthma, she attempted to use her albuterol inhaler 7-8 times this morning with no improvement. Patient states that she was at a [employer] 3 days ago and she inhaled a cigar, the room was very smoky. Since that time her symptoms have exacerbated. Past medical history significant for hypertension, hyperlipidemia, gastric antral vascular ectasia, fatty liver disease with cirrhotic changes. Symptom onset was gradual, symptoms are moderate. Symptoms are exacerbated with activity. Patient states that she "rallied" last night to go out to her friend's birthday republican but has not been feeling well. Related Data Home Medications Medication Instructions Recorded Confirmed albuterol sulfate 2 puff INHALATION Q4-6H PRN 04/16/18 04/16/18 atorvastatin 20 mg PO DAILY 04/16/18 04/16/18 desvenlafaxine succinate [Pristiq] 50 mg PO DAILY 04/16/18 04/16/18 diazepam [Valium] 10 mg PO DAILY 04/16/18 04/16/18 doxepin 6 mg PO HS 04/16/18 04/16/18 fexofenadine 60 mg PO DAILY 04/16/18 04/16/18 fluticasone 1 inh INHALATION Q12H 04/16/18 04/16/18 furosemide 40 mg PO DAILY PRN 04/16/18 04/16/18 letrozole 2.5 mg PO DAILY 04/16/18 04/16/18 levothyroxine 125 mcg PO DAILY 04/16/18 04/16/18 omeprazole 40 mg PO DAILY 04/16/18 04/16/18 potassium chloride 20 meq PO DAILY PRN 04/16/18 04/16/18 spironolacton-hydrochlorothiaz 1 tab PO DAILY 04/16/18 04/16/18 thalidomide 50 mg PO QPM 04/16/18 04/16/18 valsartan 80 mg PO DAILY 04/16/18 04/16/18 Allergies Allergy/AdvReac Type Severity Reaction Status Date / Time blueberry Allergy Severe Gastrointestinal Unverified 04/16/18 10:42 Upset ciprofloxacin Allergy Severe Bleeding Unverified 04/16/18 10:42 diclofenac Allergy Severe Bleeding Unverified 04/20/17 10:24 etodolac Allergy Severe Bleeding Unverified 04/20/17 10:24 flurbiprofen Allergy Severe Bleeding Unverified 04/20/17 10:24 ibuprofen Allergy Severe Bleeding Unverified 04/20/17 10:24 indomethacin Allergy Severe Bleeding Unverified 04/20/17 10:24 ketoprofen Allergy Severe Bleeding Unverified 04/20/17 10:24 ketorolac Allergy Severe Bleeding Unverified 04/20/17 10:24 moxifloxacin Allergy Severe Itching Unverified 04/20/17 10:24 naproxen Allergy Severe Bleeding Unverified 04/20/17 10:24 oxaprozin Allergy Severe Bleeding Unverified 04/20/17 10:24 Sulfa (Sulfonamide Allergy Severe Bleeding Unverified 04/16/18 10:42 Antibiotics) Beans Allergy Severe Bleeding Uncoded 04/16/18 10:42 red wine Allergy Severe Bleeding Uncoded 04/16/18 10:42 soya food Allergy Severe Bleeding Uncoded 04/16/18 10:42 tonic water Allergy Severe Bleeding Uncoded 04/16/18 10:42 Review of Systems ROS: all other systems reviewed are negative [facility] Medical History Medical History Anxiety (Acute) Breast cancer (Acute) Cirrhosis (Acute) Fatty liver (Acute) G6PD deficiency (Acute) GAVE (gastric antral vascular ectasia) (Acute) GERD (gastroesophageal reflux disease) (Acute) HTN (hypertension) (Acute) High cholesterol (Acute) Hypothyroid (Acute) Surgical History Surgical History Hx of lumpectomy (Acute) Social History Social History Substance History: No History of Abuse Smoking Status: Former smoker How Often Do You Have a Drink Containing Alcohol: Monthly or less Recent Travel in [facility] within the Last 8 Weeks: No Recent Out of Country Travel within the Last 8 Weeks: No Immunization History Tetanus Immunization: <5 Years Exam Narrative Exam Narrative: GENERAL: Well-developed, well-nourished, alert female. Presenting in no acute distress. SKIN: Focused skin assessment warm/dry. HEAD: Atraumatic. Normocephalic. EYES: Pupils equal and round. No scleral icterus. No injection or drainage. ENT: No nasal bleeding or discharge. Mucous membranes pink and moist. NECK: Trachea midline. No JVD. CARDIOVASCULAR: Tachycardic. No murmur appreciated. RESPIRATORY: No accessory muscle use. Diminished throughout GASTROINTESTINAL: Abdomen soft, non-tender, nondistended. Hepatic and splenic margins not palpable. MUSCULOSKELETAL: No obvious deformities. No clubbing. No cyanosis. No edema. NEUROLOGICAL: Awake and alert. No obvious cranial nerve deficits. Motor grossly within normal limits. Normal speech. PSYCHIATRIC: Appropriate mood and affect; insight and judgment normal. Course Initial Documented Vital Signs Temperature 98.1 F 04/16/18 10:37 Pulse Rate 92 H 04/16/18 10:37 Respiratory Rate 22 04/16/18 10:37 Blood Pressure 149/63 H 04/16/18 10:37 Pulse Oximetry 94 L 04/16/18 10:37 Last Documented Vital Signs Temperature 98.1 F 04/16/18 10:37 Pulse Rate 100 H 04/16/18 11:27 Respiratory Rate 22 04/16/18 11:27 Blood Pressure 134/96 H 04/16/18 10:40 Pulse Oximetry 96 04/16/18 10:40 Medical Decision Making BRIDGETT Attestation BRIDGETT supervised visit: Yes Attestation: I, Dr. Cat, have reviewed the advance practice practitioner's documentation and am in agreement, met with the patient face to face, made the diagnosis, and the medical decision making was done by me. *My assessment and Findings: Shortness of breath for two days. Hx G6PD deficiency. Hx gastric antral ectasia. Prior episodes of acute anemia reported. 1U PRBCs to be transfused. Pt with follow up at [place] scheduled in 4 days. d/w Dr Batres. [facility] Narrative Medical decision making narrative: Patient is a well-appearing 68-year-old female presenting with 2 days of increasing shortness of breath. Labs and imaging ordered and pending. Patient was tachycardic on arrival, she has used her albuterol inhaler 7 or 8 times prior to arriving in the emergency department. Vital signs are otherwise stable. Patient will be given duo nebs, Solu-Medrol, budesonide nebulizer. CBC with a hemoglobin of 7.7, patient reports that her hemoglobin normally is around 8. Shortness of breath may be due to symptomatic anemia. Type and screen as well as 1 unit of red blood cells ordered. Cardiac enzymes are negative x1 set Chest x-ray shows mild hyperinflation, no acute disease. Chemistry with no acute findings. Pt was also seen and evaluated by my attending physician. Plan of care made in collaboration. Pt will be admitted for transfusion. Admit orders placed. Medical Screen Exam Complete: Yes Emergency Medical Condition: Yes Differential Diagnosis Differential Diagnosis: Acute bronchitis versus pneumonia versus metabolic abnormality versus other Medical Records Medical records reviewed: Yes I reviewed the patient's medical records. Lab Data Lab results reviewed: Yes I reviewed the patient's lab results. Result diagrams: 04/16/18 11:10 04/16/18 11:10 Lab Results 04/16/18 04/16/18 04/16/18 Range/Units 11:10 11:10 12:45 WBC 6.9 (4.0-11.0) th/mm3 RBC 2.83 L (4.00-5.30) mil/mm3 Hgb 7.7 L (11.6-15.3) gm/dL Hct 25.3 L (35.0-46.0) % MCV 89.2 (80.0-100.0) fL MCH 27.2 (27.0-34.0) pg MCHC 30.4 L (32.0-36.0) % RDW 15.6 (11.6-17.2) % Plt Count 284 (150-450) th/mm3 MPV 8.4 (7.0-11.0) fL Neut % (Auto) 78.4 H (16.0-70.0) % Lymph % (Auto) 11.7 (9.0-44.0) % Holmes % (Auto) 7.0 (0.0-8.0) % Eos % (Auto) 1.8 (0.0-4.0) % Baso % (Auto) 1.1 (0.0-2.0) % Neut # (Auto) 5.4 (1.8-7.7) th/mm3 Lymph # (Auto) 0.8 L (1.0-4.8) th/mm3 Holmes # (Auto) 0.5 (0.0-0.9) th/mm3 Eos # (Auto) 0.1 (0.0-0.4) th/mm3 Baso # (Auto) 0.1 (0.0-0.2) th/mm3 WBC Differential . Differential Comment Auto diff final Sodium 145 (136-145) meq/L Potassium 3.8 (3.5-5.1) meq/L Chloride 110 H (98-107) meq/L Carbon Dioxide 26.2 (21.0-32.0) meq/L Anion Gap 9 (5-15) meq/L BUN 14 (7-18) mg/dL Creatinine 0.92 (0.50-1.00) mg/dL Estimated GFR 61 L (>89) mL/min Random Glucose 132 H (74-106) mg/dL Calcium 8.2 L (8.5-10.1) mg/dL Magnesium 2.0 (1.5-2.5) mg/dL Total Bilirubin 0.3 (0.2-1.0) mg/dL AST 32 (15-37) U/L ALT 28 (10-53) U/L Alkaline Phosphatase 169 H (45-117) U/L Total Creatine Kinase 77 (26-192) U/L Troponin I Less than 0.02 L (0.02-0.05) ng/mL Total Protein 7.3 (6.4-8.2) g/dL Albumin 3.1 L (3.4-5.0) g/dL Blood Type O Positive Blood Type Recheck Required Antibody Screen Negative MTS Gel Crossmatch See Detail Imaging Data Radiologist's impression: Chest X-Ray 04/16/18 11:06 CONCLUSION: Mild hypoinflation of the lungs. No evidence of airspace consolidation. Discharge Plan Discharge Disposition Patient Disposition: ED Admit(ED Internal Use Only) Discharge Order Discharge Orders: ED Use Only Admit Order (Routine); Ordered 04/16/18 Ordered By: Rosy Berman Discharge Details Diagnosis: Symptomatic anemia, Shortness of breath Physicians Team ED Provider: [place] Cat ED Midlevel Provider: Rosy Berman Primary Care Provider: UNKNOWN, Rxs /Orders / Referrals /Forms Prescriptions: No Action furosemide 40 mg Tablet 40 mg PO DAILY PRN (Reason: swelling) RF: 0 fluticasone 50 mcg/actuation Blister With Device 1 inh INHALATION Q12H RF: 0 thalidomide 50 mg Capsule 50 mg PO QPM RF: 0 atorvastatin 20 mg Tablet 20 mg PO DAILY RF: 0 fexofenadine 60 mg Tablet 60 mg PO DAILY RF: 0 spironolacton-hydrochlorothiaz 25-25 mg Tablet 1 tab PO DAILY RF: 0 valsartan 80 mg Tablet 80 mg PO DAILY RF: 0 omeprazole 40 mg Capsule,Delayed Release(Dr/Ec) 40 mg PO DAILY RF: 0 levothyroxine 125 mcg Tablet 125 mcg PO DAILY RF: 0 diazepam [Valium] 10 mg Tablet 10 mg PO DAILY RF: 0 letrozole 2.5 mg Tablet 2.5 mg PO DAILY RF: 0 albuterol sulfate 90 mcg/actuation Hfa Aerosol Inhaler 2 puff INHALATION Q4-6H PRN (Reason: Shortness Of Breath) RF: 0 desvenlafaxine succinate [Pristiq] 50 mg Tablet Extended Release 24 Hr 50 mg PO DAILY RF: 0 doxepin 6 mg Tablet 6 mg PO HS RF: 0 potassium chloride 20 mEq Tablet Extended Release 20 meq PO DAILY PRN (Reason: with lasix) RF: 0 Status ED Status: Admitted Observation Patient
--- NOTE | 2018-04-16 11:36 | XR ---
EXAM DATE: 04/16/2018 11:31 AM EST AGE/SEX: 68 years / Female INDICATIONS: Short of breath. CLINICAL DATA: This is the patient's initial encounter. Patient reports that signs and symptoms have been present for 2 days and indicates a pain score of 0/10. MEDICAL/SURGICAL HISTORY: . Carcinoma, breast. SURGICAL HISTORY : Total knee replacement, right . . COMPARISON: [facility] [place]ST [place] & LAT, 04/20/2017. . FINDINGS: A single AP view of the chest demonstrates the lungs to be symmetrically hypoinflated without evidenc e of mass, infiltrate or effusion. The cardiomediastinal contours are unremarkable. Osseous structu res are intact. CONCLUSION: Mild hypoinflation of the lungs. No evidence of airspace consolidation. Electronically signed by: Danielle Forte MD Board Certified Radiologist 04/16/2018 11:35 AM E
[2018-04-16 11:41] LABS: Baso # (Auto) 0.1 th/mm3 (0.0-0.2); Baso % (Auto) 1.1 % (0.0-2.0); Eos # (Auto) 0.1 th/mm3 (0.0-0.4); Eos % (Auto) 1.8 % (0.0-4.0); Hematocrit 25.3 % (35.0-46.0); Hemoglobin 7.7 gm/dL (11.6-15.3); Lymph # (Auto) 0.8 th/mm3 (1.0-4.8); Lymph % (Auto) 11.7 % (9.0-44.0); Mean Corpuscular Hemoglobin 27.2 pg (27.0-34.0); Mean Corpuscular Volume 89.2 fL (80.0-100.0); Mean Platelet Volume 8.4 fL (7.0-11.0); Mono # (Auto) 0.5 th/mm3 (0.0-0.9); Neut # (Auto) 5.4 th/mm3 (1.8-7.7); Neut % (Auto) 78.4 % (16.0-70.0); Platelet Count 284 th/mm3 (150-450); Red Blood Count 2.83 mil/mm3 (4.00-5.30); Red Cell Distribution Width 15.6 % (11.6-17.2); White Blood Count 6.9 th/mm3 (4.0-11.0)
[2018-04-16 11:51] LABS: Mean Corpuscular HGB Conc 30.4 % (32.0-36.0)
[2018-04-16 11:58] LABS: Albumin 3.1 g/dL (3.4-5.0); Anion Gap 9 meq/L (5-15); Aspartate Aminotransferase 32 U/L (15-37); Blood Urea Nitrogen 14 mg/dL (7-18); Calcium 8.2 mg/dL (8.5-10.1); Carbon Dioxide 26.2 meq/L (21.0-32.0); Chloride 110 meq/L (98-107); Glomerular Filtration Rate 61 mL/min (>89); Glucose,Random 132 mg/dL (74-106); Potassium 3.8 meq/L (3.5-5.1); Sodium 145 meq/L (136-145)
[2018-04-16 12:03] LABS: Alanine Aminotransferase 28 U/L (10-53); Alkaline Phosphatase 169 U/L (45-117); Total Protein 7.3 g/dL (6.4-8.2)
[2018-04-16 12:04] LABS: Creatine Kinase 77 U/L (26-192)
--- NOTE | 2018-04-16 13:40 | P.HPIM ---
History of Present Illness Primary Care Physician: UNKNOWN History of Present Illness: This patient is a 68 y/o F with a dx of htn, dld, hypothyroidism, anxiety, cirrhosis, breast cancer, g6pd def, gerd, who presents to the ER with complaints of shortness of breath. She says she has not drank alcohol or smoked cigarettes for nearly 15 yrs however over the past few days she started to drink and smoke cigarettes again because of her friends birthday and a cigar constitution party. She denies any recent exposure to substances that would trigger her G6PD. She reports black stools over the past 10-15 yrs since she was started on iron pills. She was evaluated in the ED and a chest xray was done which did not show any significant abnormalities. I was called to evaluate the patient. pmh htn, dld, hypothyroidism, anxiety, cirrhosis, breast cancer s/p lumpectomy and radiation, g6pd def, gerd surg hx lumpectomy, knee replacement, tonsils removed, dental surgery fam hx htn in mother social hx extensive tobacco and etoh use in the past. quit 15 yrs ago. Over the past week she had a few drinks and started smoked cigars two days ago. No substance abuse. Review of Systems All other systems reviewed negative except as stated in HPI PMFSH - History History Provided By: Patient - Medical History Medical History: Medical History (Last Reviewed 04/16/18 @ 11:32 by YARELI Peña) Anxiety Breast cancer Cirrhosis Fatty liver G6PD deficiency GAVE (gastric antral vascular ectasia) GERD (gastroesophageal reflux disease) HTN (hypertension) High cholesterol Hypothyroid - Surgical History Surgical History: Surgical History (Last Reviewed 04/16/18 @ 11:32 by YARELI Peña) Hx of lumpectomy - Tobacco History Smoking Status: Former smoker - Alcohol History How Often Do You Have a Drink Containing Alcohol: Monthly or less - Substance Use History Substance History: No History of Abuse - Travel History Recent Travel in the [place] Within the Last 8 Weeks: No Recent Travel Out of the Country Within the Last 8 Weeks: No - Immunization History Tetanus Immunization: <5 Years Medications and Allergies Active Medications: Active Medications Sodium Chloride (Ns Flush) 2 ml IV.FLUSH PRN PRN PRN Reason: FLUSH AFTER USING IV ACCESS Last Admin: 04/16/18 11:16 Dose: 2 ml Allergies Allergy/AdvReac Type Severity Reaction Status Date / Time blueberry Allergy Severe Gastrointestinal Verified 04/16/18 13:41 Upset ciprofloxacin Allergy Severe Bleeding Verified 04/16/18 13:41 diclofenac Allergy Severe Bleeding Verified 04/16/18 13:41 etodolac Allergy Severe Bleeding Verified 04/16/18 13:41 flurbiprofen Allergy Severe Bleeding Verified 04/16/18 13:41 ibuprofen Allergy Severe Bleeding Verified 04/16/18 13:41 indomethacin Allergy Severe Bleeding Verified 04/16/18 13:41 ketoprofen Allergy Severe Bleeding Verified 04/16/18 13:41 ketorolac Allergy Severe Bleeding Verified 04/16/18 13:41 moxifloxacin Allergy Severe Itching Verified 04/16/18 13:41 naproxen Allergy Severe Bleeding Verified 04/16/18 13:41 oxaprozin Allergy Severe Bleeding Verified 04/16/18 13:41 Sulfa (Sulfonamide Allergy Severe Bleeding Verified 04/16/18 13:41 Antibiotics) Beans Allergy Severe Bleeding Uncoded 04/16/18 10:42 red wine Allergy Severe Bleeding Uncoded 04/16/18 10:42 soya food Allergy Severe Bleeding Uncoded 04/16/18 10:42 tonic water Allergy Severe Bleeding Uncoded 04/16/18 10:42 Home Medications Medication Instructions Recorded Confirmed Type albuterol sulfate 2 puff INHALATION Q4-6H PRN 04/16/18 04/16/18 History atorvastatin 20 mg PO DAILY 04/16/18 04/16/18 History desvenlafaxine succinate [Pristiq] 50 mg PO DAILY 04/16/18 04/16/18 History diazepam [Valium] 10 mg PO DAILY 04/16/18 04/16/18 History doxepin 6 mg PO HS 04/16/18 04/16/18 History fexofenadine 60 mg PO DAILY 04/16/18 04/16/18 History fluticasone 1 inh INHALATION Q12H 04/16/18 04/16/18 History furosemide 40 mg PO DAILY PRN 04/16/18 04/16/18 History letrozole 2.5 mg PO DAILY 04/16/18 04/16/18 History levothyroxine 125 mcg PO DAILY 04/16/18 04/16/18 History omeprazole 40 mg PO DAILY 04/16/18 04/16/18 History potassium chloride 20 meq PO DAILY PRN 04/16/18 04/16/18 History spironolacton-hydrochlorothiaz 1 tab PO DAILY 04/16/18 04/16/18 History thalidomide 50 mg PO QPM 04/16/18 04/16/18 History valsartan 80 mg PO DAILY 04/16/18 04/16/18 History Exam Vital signs: Vital Signs 04/16/18 10:37 04/16/18 10:40 04/16/18 11:27 Temperature 98.1 F Pulse Rate 92 H 109 H 100 H Respiratory Rate 22 27 H 22 Blood Pressure 149/63 H 134/96 H Pulse Oximetry 94 L 96 Intake & Output 04/15/18 04/16/18 04/16/18 18:59 06:59 18:59 Weight 99.79 kg Narrative: alert and oriented x 3 S1 S2, no chest pain CTA b/l abd soft, nt, non distended, normal bowel sounds no edema of exts no neuro deficits. Results - Labs CBC & Chem 7: 04/16/18 11:10 04/16/18 11:10 Labs: Short CBC 04/16/18 Range/Units 11:10 WBC 6.9 (4.0-11.0) th/mm3 Hgb 7.7 L (11.6-15.3) gm/dL Hct 25.3 L (35.0-46.0) % Plt Count 284 (150-450) th/mm3 BMP 04/16/18 11:10 Sodium 145 Potassium 3.8 Chloride 110 H Carbon Dioxide 26.2 BUN 14 Creatinine 0.92 Calcium 8.2 L Cardiac Enzymes 04/16/18 Range/Units 11:10 Total Creatine Kinase 77 (26-192) U/L Troponin I Less than 0.02 L (0.02-0.05) ng/mL Liver Function 04/16/18 Range/Units 11:10 Total Bilirubin 0.3 (0.2-1.0) mg/dL AST 32 (15-37) U/L ALT 28 (10-53) U/L Alkaline Phosphatase 169 H (45-117) U/L Albumin 3.1 L (3.4-5.0) g/dL - Imaging Impressions Chest X-Ray 04/16/18 11:06 CONCLUSION: Mild hypoinflation of the lungs. No evidence of airspace consolidation. Caprini VTE Risk Assessment Caprini VTE Risk Assessment: Moderate/High Risk (score >= 2) Caprini Risk Assessment Model: Point Value = 1 Point Value = 2 Point Value = 3 Point Value = 5 Age 41-60 Minor surgery BMI > 25 kg/m2 Swollen legs Varicose veins or History of unexplained or recurrent spontaneous Oral contraceptives or hormone replacement Sepsis (< 1 month) Serious lung disease, including pneumonia (< 1 month) Abnormal pulmonary function Acute myocardial infarction Congestive heart failure (< 1 month) History of inflammatory bowel disease Medical patient at bed rest Age 61-74 Arthroscopic surgery Major open surgery (> 45 min) Laparoscopic surgery (> 45 min) Malignancy Confined to bed (> 72 hours) Immobilizing plaster cast Central venous access Age >= 75 History of VTE Family history of VTE Factor V Leiden Prothrombin [id number] Lupus anticoagulant Anticardiolipin antibodies Elevated serum homocysteine Heparin-induced thrombocytopenia Other congenital or acquired thrombophilia Stroke (< 1 month) Elective arthroplasty Hip, pelvis, or leg fracture Acute spinal cord injury (< 1 month) Prophylaxis Regimen: Total Risk Factor Score Risk Level Prophylaxis Regimen 0-1 Low Early ambulation 2 Moderate Order ONE of the following: *Sequential Compression Device (SCD) *Heparin 5000 units SQ BID 3-4 Higher Order ONE of the following medications: *Heparin 5000 units SQ TID *Enoxaparin/Lovenox 40 mg SQ daily (WT < 150 kg, CrCl > 30 mL/min) *Enoxaparin/Lovenox 30 mg SQ daily (WT < 150 kg, CrCl > 10-29 mL/min) *Enoxaparin/Lovenox 30 mg SQ BID (WT < 150 kg, CrCl > 30 mL/min) AND/OR *Sequential Compression Device (SCD) 5 or more Highest Order ONE of the following medications: *Heparin 5000 units SQ TID (Preferred with Epidurals) *Enoxaparin/Lovenox 40 mg SQ daily (WT < 150 kg, CrCl > 30 mL/min) *Enoxaparin/Lovenox 30 mg SQ daily (WT < 150 kg, CrCl > 10-29 mL/min) *Enoxaparin/Lovenox 30 mg SQ BID (WT < 150 kg, CrCl > 30 mL/min) AND *Sequential Compression Device (SCD) Assessment and Plan - Plan This patient is a 68 y/o F with a dx of htn, dld, hypothyroidism, anxiety, cirrhosis, breast cancer, g6pd def, gerd, who presents to the ER with complaints of shortness of breath. She says she has not drank alcohol or smoked cigarettes for nearly 15 yrs however over the past few days she started to drink and smoke cigarettes again because of her friends birthday and a cigar constitution party. She denies any recent exposure to substances that would trigger her G6PD. She was evaluated in the ED and a chest xray was done which did not show any significant abnormalities. 1. Acute symptomatic anemia likely anemia of chronic disease Patient complaining of shortness of breath. Not hypoxic. CXR shows no significant findings. Patient with hgb 7.7, as per pt baseline is usually around 8.5 Patient evaluated by ED, one unit prbc ordered. If transfusion happens in the next few hours I believe the patient can be discharged possibly later today or in the am. Will follow up post transfusion hemogram. Stool guiac will be ordered. 2. HTN/DLD/Hypothyroidism Continue home meds for htn, dld, hypothyroidism 3. Gerd continue ppi. Patient is ambulatory, no pharmacotherapy for dvt prophylaxis.
[2018-04-16] MEDS ORDERED: DOXEPIN 6 MG PO SCH (15:15)
[2018-04-17] MEDS ORDERED: Morphine Inj 4 MG/ML Vial IV.PUSH ONE (02:53)
[2018-04-17 04:12] LABS: Creatine Kinase 57 U/L (26-192)
[2018-04-17] MEDS: Levothyroxine 125 MCG Tablet PO SCH (05:34)
[2018-04-17] MEDS: LETROZOLE 2.5 MG PO SCH (08:40)
[2018-04-17 08:42] LABS: Hematocrit 22.6 % (35.0-46.0); Hemoglobin 7.4 gm/dL (11.6-15.3)
--- NOTE | 2018-04-17 15:40 | ECG ---
Date Performed: 04/16/2018 Time Performed: 10:51:20 PTAGE: 68 years EKG: SINUS TACHYCARDIA WITH FREQUENT PREMATURE VENTRICULAR COMPLEXES POSSIBLE RIGHT VENTRICULAR CONDUCTION DELAY When compared to previous tracing, sinus rate is faster. ABNORMAL ECG PREVIOUS TRACING : 04/20/2017 10.08 DOCTOR: Brando Galindo Interpretating Date/Time 04/17/2018 15:38:59
--- NOTE | 2018-04-17 15:42 | ECG ---
Date Performed: 04/17/2018 Time Performed: 03:06:37 PTAGE: 68 years EKG: Sinus rhythm POSSIBLE RIGHT VENTRICULAR CONDUCTION DELAY SEPTAL MYOCARDIAL INFARCTION , OF INDETERMINATE AGE When compared previous tracing, sinus rate is slower and Premature ventricular contractions are unresolve d. ABNORMAL ECG PREVIOUS TRACING : 04/16/2018 10.51 DOCTOR: Brando Galindo Interpretating Date/Time 04/17/2018 15:40:28
--- NOTE | 2018-04-17 17:23 | P.CONGI ---
History of Present Illness Consult date: 04/17/18 Consult reason: Anemia Possible GI bleed Chief complaint: Symptomatic anemia History of Present Illness: This patient is a 68-year-old female with past medical history significant for hypertension, anxiety, breast cancer, cirrhosis, fatty liver, G6PD deficiency, gastral antral vascular ectasia, GERD, hypertension, hypothyroidism and hypercholesteremia. Surgical history significant for lumpectomy. This patient presented to [place] emergency room with complaints of shortness of breath. Of note, she also reports black stools over the last 10 -15 years. Patient states she has been on iron supplementation for that time. Patient denies any noted active bleeding. States stools are always black. Patient denies abdominal pain nausea or vomiting. States she has chronic diarrhea for which he takes Imodium twice daily. Patient endorses biopsy of liver done at [facility] which resulted in diagnosis of cirrhosis due to fatty liver. Our service has been consulted to evaluate patient for anemia and possible endoscopic procedure. <Eleonora Jimenez - Last Filed: 04/17/18 17:14> Review of Systems All other systems reviewed negative except as stated in HPI <Eleonora Jimenez - Last Filed: 04/17/18 17:14> PMFSH - History History Provided By: Patient - Medical History Medical History: Medical History (Last Reviewed 04/16/18 @ 11:32 by YARELI Peña) Anxiety Breast cancer Cirrhosis Fatty liver G6PD deficiency GAVE (gastric antral vascular ectasia) GERD (gastroesophageal reflux disease) HTN (hypertension) High cholesterol Hypothyroid - Surgical History Surgical History: Surgical History (Last Reviewed 04/16/18 @ 11:32 by YARELI Peña) Hx of lumpectomy - Tobacco History Second Hand Smoke Exposure: Yes Tobacco Use In Past 30 Days: Yes Smoking Status: Former smoker Tobacco Type: Cigarettes - Alcohol History How Often Do You Have a Drink Containing Alcohol: Monthly or less - Substance Use History Substance History: No History of Abuse - Travel History Recent Travel in the [place] Within the Last 8 Weeks: No Recent Travel Out of the Country Within the Last 8 Weeks: No - Immunization History Tetanus Immunization: <5 Years Hx Influenza Vaccine This Season: Yes <Eleonora Jimenez - Last Filed: 04/17/18 17:14> - Medical History Medical History: Medical History (Last Reviewed 04/16/18 @ 11:32 by YARELI Peña) Anxiety Breast cancer Cirrhosis Fatty liver G6PD deficiency GAVE (gastric antral vascular ectasia) GERD (gastroesophageal reflux disease) HTN (hypertension) High cholesterol Hypothyroid - Surgical History Surgical History: Surgical History (Last Reviewed 04/16/18 @ 11:32 by YARELI Peña) Hx of lumpectomy <Mohit Silva - Last Filed: 04/18/18 09:07> Medications and Allergies Active Medications: Active Medications Albuterol (Duoneb Neb (Prn)) 1 ampul NEB Q4HR NEB PRN PRN Reason: SHORTNESS OF BREATH/WHEEZING Last Admin: 04/17/18 15:47 Dose: 1 ampul Albuterol (Duoneb Neb (Rhina)) 1 ampul NEB Q6HR WHILE AWAKE NEB RHINA Atorvastatin Calcium (Lipitor) 20 mg PO HS [facility] Last Admin: 04/16/18 21:17 Dose: 20 mg Levothyroxine Sodium (Synthroid) 125 mcg PO DAILY@0600 [facility] Last Admin: 04/17/18 05:34 Dose: 125 mcg Losartan Potassium (Cozaar) 25 mg PO DAILY [facility] Last Admin: 04/17/18 08:38 Dose: Not Given Non-Formulary Drug: (Letrozole 2.5 Mg Tab) 0 each PO DAILY [facility] Last Admin: 04/17/18 08:40 Dose: 1 each Pantoprazole Sodium (Protonix) 40 mg PO BID [facility] Patient Own Medication: Doxepin 6 Mg Po Hs 0 each PO HS RHINA Sodium Chloride (Ns Flush) 2 ml IV.FLUSH PRN PRN PRN Reason: FLUSH AFTER USING IV ACCESS Last Admin: 04/16/18 11:16 Dose: 2 ml <Eleonora Jimenez - Last Filed: 04/17/18 17:14> Active Medications: Active Medications Albuterol (Duoneb Neb (Prn)) 1 ampul NEB Q4HR NEB PRN PRN Reason: SHORTNESS OF BREATH/WHEEZING Last Admin: 04/18/18 00:08 Dose: 1 ampul Albuterol (Duoneb Neb (Rhina)) 1 ampul NEB Q6HR WHILE AWAKE NEB RHINA Last Admin: 04/18/18 08:48 Dose: 1 ampul Atorvastatin Calcium (Lipitor) 20 mg PO HS [facility] Last Admin: 04/17/18 21:34 Dose: 20 mg Lactated Ringer's (Lr 1000 Ml Inj) 1,000 mls @ 30 mls/hr IV.SIG .Q24H [facility] Stop: 04/19/18 01:29 Sodium Chloride (Ns Inj) 500 mls @ 30 mls/hr IV.SIG .Q10H [facility] Levothyroxine Sodium (Synthroid) 125 mcg PO DAILY@0600 [facility] Last Admin: 04/18/18 05:09 Dose: 125 mcg Non-Formulary Drug: (Letrozole 2.5 Mg Tab) 0 each PO DAILY [facility] Last Admin: 04/17/18 08:40 Dose: 1 each Pantoprazole Sodium (Protonix) 40 mg PO BID [facility] Last Admin: 04/17/18 21:34 Dose: 40 mg Patient Own Medication: Doxepin 6 Mg Po Hs 0 each PO HS RHINA Sodium Chloride (Ns Flush) 2 ml IV.FLUSH PRN PRN PRN Reason: FLUSH AFTER USING IV ACCESS Last Admin: 04/16/18 11:16 Dose: 2 ml <Mohit Silva - Last Filed: 04/18/18 09:07> Allergies Allergy/AdvReac Type Severity Reaction Status Date / Time blueberry Allergy Severe Gastrointestinal Verified 04/16/18 13:41 Upset ciprofloxacin Allergy Severe Bleeding Verified 04/16/18 13:41 diclofenac Allergy Severe Bleeding Verified 04/16/18 13:41 etodolac Allergy Severe Bleeding Verified 04/16/18 13:41 flurbiprofen Allergy Severe Bleeding Verified 04/16/18 13:41 ibuprofen Allergy Severe Bleeding Verified 04/16/18 13:41 indomethacin Allergy Severe Bleeding Verified 04/16/18 13:41 ketoprofen Allergy Severe Bleeding Verified 04/16/18 13:41 ketorolac Allergy Severe Bleeding Verified 04/16/18 13:41 moxifloxacin Allergy Severe Itching Verified 04/16/18 13:41 naproxen Allergy Severe Bleeding Verified 04/16/18 13:41 oxaprozin Allergy Severe Bleeding Verified 04/16/18 13:41 Sulfa (Sulfonamide Allergy Severe Bleeding Verified 04/16/18 13:41 Antibiotics) Beans Allergy Severe Bleeding Uncoded 04/16/18 10:42 red wine Allergy Severe Bleeding Uncoded 04/16/18 10:42 soya food Allergy Severe Bleeding Uncoded 04/16/18 10:42 tonic water Allergy Severe Bleeding Uncoded 04/16/18 10:42 Home Medications Medication Instructions Recorded Confirmed Type albuterol sulfate 2 puff INHALATION Q4-6H PRN 04/16/18 04/16/18 History atorvastatin 20 mg PO DAILY 04/16/18 04/16/18 History desvenlafaxine succinate [Pristiq] 50 mg PO DAILY 04/16/18 04/16/18 History diazepam [Valium] 10 mg PO DAILY 04/16/18 04/16/18 History doxepin 6 mg PO HS 04/16/18 04/16/18 History fexofenadine 60 mg PO DAILY 04/16/18 04/16/18 History fluticasone 1 inh INHALATION Q12H 04/16/18 04/16/18 History furosemide 40 mg PO DAILY PRN 04/16/18 04/16/18 History letrozole 2.5 mg PO DAILY 04/16/18 04/16/18 History levothyroxine 125 mcg PO DAILY 04/16/18 04/16/18 History omeprazole 40 mg PO DAILY 04/16/18 04/16/18 History potassium chloride 20 meq PO DAILY PRN 04/16/18 04/16/18 History spironolacton-hydrochlorothiaz 1 tab PO DAILY 04/16/18 04/16/18 History thalidomide 50 mg PO QPM 04/16/18 04/16/18 History valsartan 80 mg PO DAILY 04/16/18 04/16/18 History Exam Vital signs: Vital Signs 04/16/18 18:14 04/16/18 18:21 04/16/18 18:29 Temperature 98.3 F 98.2 F 98.4 F Pulse Rate 97 H 98 H 98 H Respiratory Rate Blood Pressure 145/65 H 138/65 130/62 Pulse Oximetry 96 100 100 04/16/18 18:35 04/16/18 20:00 04/16/18 23:04 Temperature 98.9 F 97.7 F Pulse Rate 97 H 101 H 94 H Respiratory Rate 18 18 Blood Pressure 136/67 147/72 H Pulse Oximetry 100 88 L 04/16/18 23:06 04/17/18 00:00 04/17/18 03:17 Temperature 98.1 F Pulse Rate 96 H Respiratory Rate 20 16 Blood Pressure 118/64 Pulse Oximetry 92 L 96 04/17/18 04:00 04/17/18 08:00 04/17/18 10:50 Temperature 97.8 F 98 F 97.6 F Pulse Rate 87 91 H 93 H Respiratory Rate 20 20 20 Blood Pressure 111/59 L 110/55 L 123/60 Pulse Oximetry 96 96 97 04/17/18 11:00 04/17/18 15:49 04/17/18 16:15 Temperature 97.4 F L Pulse Rate 90 89 Respiratory Rate 18 20 Blood Pressure 116/63 Pulse Oximetry 96 94 L Intake & Output 04/16/18 04/17/18 04/17/18 18:59 06:59 18:59 Intake Total 0 / 0 240 / 240 Balance 0 / 0 240 / 240 Weight 99.79 kg Intake: Oral 240 / 240 Intake (Blood Product) Amt 0 / 0 Rbc As-3 Leukoreduced Unit 0 / 0 [id number] Other: # Voids 2 - Constitutional no acute distress, cooperative - Routine HEENT Exam Head: Present: normocephalic - Routine Respiratory Exam Present: CTA bilaterally. Absent: accessory muscle use - Routine Cardiovascular Exam Present: RRR, S1, S2 - Routine Abdominal Exam Present: soft, normoactive bowel sounds. Absent: tenderness, guarding, firm Comments: Obese - Routine Extremities Exam Absent: edema - Routine Skin Exam Present: dry, warm - Routine Neurological Exam Present: alert <Jimenez,Eleonora - Last Filed: 04/17/18 17:14> Vital signs: Vital Signs 04/17/18 10:50 04/17/18 11:00 04/17/18 15:49 Temperature 97.6 F Pulse Rate 93 H 90 Respiratory Rate 20 18 Blood Pressure 123/60 Pulse Oximetry 97 96 04/17/18 16:15 04/17/18 19:49 04/17/18 20:00 Temperature 97.4 F L 98.6 F Pulse Rate 89 89 95 H Respiratory Rate 20 20 20 Blood Pressure 116/63 133/80 Pulse Oximetry 94 L 96 04/18/18 00:00 04/18/18 00:07 04/18/18 04:00 Temperature 99.6 F 99.3 F Pulse Rate 101 H 86 53 L Respiratory Rate 20 26 H 20 Blood Pressure 130/75 172/80 H Pulse Oximetry 93 L 97 04/18/18 08:00 Temperature 99.0 F Pulse Rate 83 Respiratory Rate 20 Blood Pressure 103/59 L Pulse Oximetry 98 Intake & Output 04/17/18 04/18/18 04/18/18 18:59 06:59 18:59 Intake Total 240 / 240 60 / 60 Balance 240 / 240 60 / 60 Weight 99.7 kg Intake: Oral 240 / 240 60 / 60 Other: # Voids 3 <Mohit Silva - Last Filed: 04/18/18 09:07> Results - Labs CBC & Chem 7: 04/17/18 07:35 04/16/18 11:10 Labs: Laboratory Results - last 24 hr 04/16/18 04/17/18 04/17/18 12:45 03:42 07:35 Hgb 7.4 L Hct 22.6 L Total Creatine Kinase 57 Troponin I Less than 0.02 L B-Natriuretic Peptide Blood Type O Positive Blood Type Recheck Required Antibody Screen Negative MTS Gel Crossmatch See Detail Bld Prod Order Comment 04/17/18 07:35 Hgb Hct Total Creatine Kinase Troponin I B-Natriuretic Peptide 248 H Blood Type Blood Type Recheck Antibody Screen MTS Gel Crossmatch Bld Prod Order Comment <Eleonora Jimenez - Last Filed: 04/17/18 17:14> - Labs CBC & Chem 7: 04/18/18 05:37 04/16/18 11:10 Labs: Laboratory Results - last 24 hr 04/17/18 04/18/18 04/18/18 07:35 05:37 05:37 Hgb 8.0 L Hct 25.6 L Retic Count 3.9 H Absolute Retic 114.7 Haptoglobin POC Glucose Iron TIBC % Saturation Ferritin Lactate Dehydrogenase B-Natriuretic Peptide 248 H 04/18/18 04/18/18 05:37 08:24 Hgb Hct Retic Count Absolute Retic Haptoglobin 368 H POC Glucose 118 H Iron 17 L TIBC 363 % Saturation 4.7 L Ferritin 13 Lactate Dehydrogenase 166 B-Natriuretic Peptide <Mohit Silva - Last Filed: 04/18/18 09:07> Assessment and Plan (1) Symptomatic anemia Status: Acute Code(s): D64.9 - Anemia, unspecified - Plan This patient is a 68-year-old female with past medical history significant for hypertension, anxiety, breast cancer, cirrhosis, fatty liver, G6PD deficiency, gastral antral vascular ectasia, GERD, hypertension, hypothyroidism and hypercholesteremia. Surgical history significant for lumpectomy. This patient presented to [place] emergency room with complaints of shortness of breath. Of note, she also reports black stools over the last 10-15 years. Patient states she has been on iron supplementation for that time. Patient denies any noted active bleeding. States stools are always black. Patient denies abdominal pain nausea or vomiting. States she has chronic diarrhea for which he takes Imodium twice daily. Patient endorses biopsy of liver done at [facility] which resulted in diagnosis of cirrhosis due to fatty liver. Our service has been consulted to evaluate patient for anemia and possible endoscopic procedure. Anemia History of cirrhosis/fatty liver/G6 PD deficiency/gastral antral vascular ectasia Patient presents with report of shortness of breath. She endorses black stools , of note patient takes iron supplementation daily. WBC 7.4 hematocrit 22.6. Patient denies any obvious bleeding. Denies edema or abdominal distention. Total bilirubin 0.3 AST 32 ALT 28 alk phos 169 albumin 3.1 Plan -N.p.o. after midnight -Obtain consent for EGD -Pantoprazole 40 mg p.o. twice daily -Monitor for bleeding -Monitor labs hemoglobin and hematocrit -Supportive care -Further recommendations to follow Patient has been seen by myself and and this note is written on his behalf - Attending Attestation Ricardo <Eleonora Jimenez - Last Filed: 04/17/18 17:14> (1) Symptomatic anemia Status: Acute Code(s): D64.9 - Anemia, unspecified - Attending Attestation The patient was seen and examined. Agree with above. <Mohit Silva - Last Filed: 04/18/18 09:07>
[2018-04-17] MEDS ORDERED: diazePAM 5 MG Tablet PO ONE (20:46)
--- NOTE | 2018-04-17 22:22 | P.PNIM ---
Subjective Interval history: Follow up for symptomatic anemia, possible aortic stenosis. Patient is currently doing well, on room air. However, she does reports some dyspnea even on minor exertion. No chest pain, fever, chills. She reports dark stool for months but she is also on iron supplementation. Physical Exam Vital signs: Last Vital Signs Temp 98.6 F 04/17/18 20:00 Pulse 95 H 04/17/18 20:00 Resp 20 04/17/18 20:00 BP 133/80 04/17/18 20:00 Pulse Ox 96 04/17/18 20:00 Intake & Output 04/15/18 04/16/18 04/17/18 04/18/18 06:59 06:59 06:59 06:59 Intake Total 0 / 0 240 / 240 Balance 0 / 0 240 / 240 Weight 99.79 kg GENERAL: Alert, oriented x 3, NAD. SKIN: Warm and dry. HEAD: Normocephalic. EYES: No scleral icterus. No injection or drainage. NECK: Supple, trachea midline. No JVD or lymphadenopathy. CARDIOVASCULAR: Regular rate and rhythm without murmurs, gallops, or rubs. RESPIRATORY: Breath sounds equal bilaterally. No accessory muscle use. GASTROINTESTINAL: Abdomen soft, non-tender, nondistended. MUSCULOSKELETAL: No cyanosis, or edema. BACK: Nontender without obvious deformity. No CVA tenderness. Results Labs CBC & Chem 7: 04/17/18 07:35 04/16/18 11:10 Assessment and Plan (1) Symptomatic anemia: Code(s): D64.9 - Anemia, unspecified Status: Acute Plan This patient is a 68 y/o F with a dx of HTN, dysplipidemia, hypothyroidism, anxiety, cirrhosis, breast cancer, g6pd def, gerd, who presents to the ER with complaints of shortness of breath. She says she has not drank alcohol or smoked cigarettes for nearly 15 yrs however over the past few days she started to drink and smoke cigarettes again because of her friends birthday and a cigar democrat. She denies any recent exposure to substances that would trigger her G6PD. She was evaluated in the ED and a chest xray was done which did not show any significant abnormalities. Symptomatic anemia Hx of G6PD deficiency GERD -Hgb 7.7 --> 7.4. No obvious source of bleed. However, GI bleed is a possibility -Consulted GI - patient will undergo EGD/Colonoscopy -Will request a peripheral smear review by Pathologist for any hemolysis. -Will obtain LDH, haptoglobin, ferritin, iron profile, retic count as well as H& H in the AM. Dyspnea Probable aortic stenosis -Dyspnea appears to be disproportional to what we would expect from anemia -Reviewed CXR - there appears to be some bibasilar fluid. -Will obtain a 2D echo to further characterize . -BNP is elevated to 248. -Will consider moderate diuresis - such as Lasix 20mg IV in the AM. Hypertension Hypothyroidism -Will d/c Losartan as patient is normotensive now and we plan to give diuretics. -Continue Levothyroxine. Full code. Ambulation. Hold off using any pharmacological DVT prophylaxis due to possible GI bleed. Progress Note: Quality VTE Deep Vein Thrombosis/Pulmonary Embolism Present on Admission: Yes
[2018-04-18] MEDS ORDERED: Chlorhexidine Gluconate 2% 1 Pack (2 Cloths) TOPICAL ONE (01:23)
[2018-04-18] MEDS ORDERED: Metoprolol Tartrate 25 MG Tablet PO ONE (01:23)
[2018-04-18] MEDS ORDERED: Sodium Chlor 0.9% Inj 500 ML IV.SIG SCH (02:00)
[2018-04-18] MEDS: Levothyroxine 125 MCG Tablet PO SCH (05:09)
[2018-04-18 06:54] LABS: Hematocrit 25.6 % (35.0-46.0)
[2018-04-18 06:58] LABS: Reticulocyte Percent 3.9 % (0.4-3.0)
[2018-04-18 07:24] LABS: % Iron Saturation 4.7 % (20-50)
--- NOTE | 2018-04-18 09:11 | ECHRPT ---
Indication: hx of , short of breath CONCLUSIONS Normal left ventricular size. Wall thickness is measured at the upper limits of normal. The left ventricular systolic function is normal with an estimated ejection fraction in the range of 55-60%. No regional wall motion abnormalities are present. [id number] mitral valve regurgitation. Mild aortic valve sclerosis is present. Mild aortic valve regurgitation. There is trace tricuspid valve regurgitation. BP: / HR: Rhythm: MEASUREMENTS (Male / Female) Normal Values Technical Quality: 2D ECHO LV Diastolic Diameter PLAX 4.5 cm 4.2 - 5.9 / 3.9 - 5.3 cm LV Systolic Diameter PLAX 3.3 cm IVS Diastolic Thickness 1.1 cm 0.6 - 1.0 / 0.6 - 0.9 cm LVPW Diastolic Thickness 1.5 cm 0.6 - 1.0 / 0.6 - 0.9 cm LV Relative Wall Thickness 0.6 RV Internal Dim ED PLAX 2.8 cm LVOT Diameter 1.9 cm Aortic Root Diameter 2.3 cm LA Systolic Diameter LX 3.6 cm 3.0 - 4.0 / 2.7 - 3.8 cm LV Ejection Fraction MOD 4C 50.6 % LV Ejection Fraction 4C AL 54.0 % M-MODE Aortic Root Diameter MM 2.4 cm LA Systolic Diameter MM 4.6 cm LA Ao Ratio MM 1.9 AV Cusp Separation MM 2.0 cm DOPPLER AV Peak Velocity 204.0 cm/s AV Peak Gradient 16.6 mmHg AV Mean Gradient 7.7 mmHg AV Velocity Time Integral 35.6 cm AI Peak Velocity 343.0 cm/s AI Peak Gradient 47.1 mmHg AI Pressure Half Time 300.0 ms Mitral E Point Velocity 108.0 cm/s Mitral A Point Velocity 109.0 cm/s Mitral E to A Ratio 1.0 LV E' Lateral Velocity 7.8 cm/s Mitral E to LV E' Lateral Ratio 13.8 LV E' Septal Velocity 6.0 cm/s Mitral E to LV E' Septal Ratio 17.9 TR Peak Velocity 306.0 cm/s TR Peak Gradient 37.5 mmHg Right Atrial Pressure 10.0 mmHg Pulmonary Artery Systolic Pressu 47.5 mmHg Right Ventricular Systolic Press 47.5 mmHg PV Peak Velocity 145.0 cm/s PV Peak Gradient 8.4 mmHg FINDINGS LEFT VENTRICLE Normal left ventricular size. Wall thickness is measured at the upper limits of normal. The left ventricular systolic function is normal with an estimated ejection fraction in the range of 55-60%. No regional wall motion abnormalities are present. RIGHT VENTRICLE Normal right ventricular size and systolic function. LEFT ATRIUM The left atrial size is normal. RIGHT ATRIUM The right atrial size is normal. ATRIAL SEPTUM Normal atrial septal thickness without atrial level shunting by limited color doppler interrogation. AORTA The aortic root and proximal ascending aorta are normal in size on limited imaging. MITRAL VALVE [id number] mitral valve regurgitation. AORTIC VALVE Mild aortic valve sclerosis is present. Mild aortic valve regurgitation. TRICUSPID VALVE There is trace tricuspid valve regurgitation. PULMONARY VALVE No pulmonary valve regurgitation or stenosis. VESSELS The inferior vena cava is normal in size. PERICARDIUM No pericardial effusion. Eric Jackson MD (Electronically Signed) Final Date:18 April 2018 09:10
--- NOTE | 2018-04-18 11:14 | P.PCN ---
Date of procedure: 04/18/18 Pre-op diagnosis: Anemia with acute blood loss Post-op diagnosis: other (Prepyloric gastric ulcer, duodenal ulcer, GAVE) Procedure: Indication; Anemia due to acute blood loss Procedure Performed; upper endoscopy with biopsy and ERBE After informing the patient about procedure and possible complications consent was signed. history and physical were updated. Patient was taken to the procedure room and placed in position. Time out was completed. Adequate sedation was performed by anesthesia provider. Upper Endoscopy, the scope was placed in the mouth advanced under video guide to the second portion of the duodenum, then the scope was withdrawal to the stomach and retro-flexion was performed, the scope was withdrawal to the esophagus then out of the mouth without any immediate complication Findings; Esophagus: Z line seen at 40 cm. Normal appearance with normal appearing esophageal mucosa Stomach: Direct and retroflex views obtained. 1 cm white based prepyloric ulcer seen. Antral erythema with edema consistent with GAVE, gastric antrum vascular ectasia. Spontaneous oozing seen from area of GAVE. ERBE with point probe used to ablate GAVE at gastric settings. About 70% of involved area treated. Retroflex in the stomach was normal, no hiatal hernia seen. Duodenum: Patchy erythema in bulb with small 3 mm white based ulcer seen in distal bulb. 2nd portion was normal. Recommendations: 1- Supportive care 2- ok to transfer to recovery area then discharge per protocol 3- Standard dose oral proton pump inhibitor [id number] diet 5- EGD with ERBE in 6 weeks 6- 24 hour observation as inpatient for possible further bleeding from GAVE. 7- Resume regular diet with G6PD precautions. Anesthesia: MAC Surgeon: Mohit Silva Pathology: other (Gastric body) Condition: stable Disposition: floor
[2018-04-18] MEDS: LETROZOLE 2.5 MG PO SCH (13:11)
--- NOTE | 2018-04-18 17:07 | P.PNIM ---
Subjective Interval history: Follow-up for symptomatic anemia, liver cirrhosis, gastric antral vascular ectasia. Patient is currently doing well. She underwent EGD today. She also underwent echocardiogram study. Denies any chest pain, shortness of breath, fever or chills. She is resting in bed without any orthopnea. Physical Exam Vital signs: Last Vital Signs Temp 97.8 F 04/18/18 12:00 Pulse 85 04/18/18 12:00 Resp 20 04/18/18 12:00 BP 144/73 H 04/18/18 12:00 Pulse Ox 95 04/18/18 12:00 Intake & Output 04/16/18 04/17/18 04/18/18 04/19/18 06:59 06:59 06:59 06:59 Intake Total 0 / 0 300 / 300 150 / 150 Balance 0 / 0 300 / 300 150 / 150 Weight 99.79 kg 99.7 kg GENERAL: Alert, oriented x3, NAD. SKIN: Warm and dry. HEAD: Normocephalic. EYES: No scleral icterus. No injection or drainage. NECK: Supple, trachea midline. No JVD or lymphadenopathy. CARDIOVASCULAR: Regular rate and rhythm without murmurs, gallops, or rubs. RESPIRATORY: Breath sounds equal bilaterally. No accessory muscle use. GASTROINTESTINAL: Abdomen soft, non-tender, nondistended. MUSCULOSKELETAL: No cyanosis, or edema. BACK: Nontender without obvious deformity. No CVA tenderness. Results Labs CBC & Chem 7: 04/18/18 05:37 04/16/18 11:10 Assessment and Plan (1) Symptomatic anemia: Code(s): D64.9 - Anemia, unspecified Status: Acute Plan This patient is a 68 y/o F with a dx of HTN, dysplipidemia, hypothyroidism, anxiety, cirrhosis, breast cancer, g6pd def, GAVE (gastric antral vascular ectasia), who presents to the ER with complaints of shortness of breath. She says she has not drank alcohol or smoked cigarettes for nearly 15 yrs however over the past few days she started to drink and smoke cigarettes again because of her friends birthday and a cigar green party. She denies any recent exposure to substances that would trigger her G6PD. She was evaluated in the ED and a chest xray was done which did not show any significant abnormalities. Symptomatic anemia due to Acute GI bleed. 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 Prepyloric ulcer Duodenal ulcer Hx of G6PD deficiency GERD -Hgb 7.7 --> 7.4 --> 8.0. No obvious source of bleed. However, GI bleed is a possibility -Consulted GI - patient underwent EGD which showed ulcers as well as GAVE related bleed. -Continue Protonix. Iron saturation 4.7%. Advised patient to take oral iron supplements with orange juice or vitamin C. Due to very low iron saturation, will start patient on iron infusion with iron sucrose 200 mg daily for 3 days. Dyspnea -2D echo shows normal ejection fraction 55-60%, mild aortic valve sclerosis. No clinical evidence of congestive heart failure. We will give patient torsemide 5 mg twice a day for a day or 2. Hypertension Hypothyroidism -Currently normotensive. Blood pressure 144/73. We will consider restarting losartan. -Continue Levothyroxine. Full code. Ambulation. Hold off using any pharmacological DVT prophylaxis due to GI bleed. Progress Note: Quality VTE Deep Vein Thrombosis/Pulmonary Embolism Present on Admission: Yes
[2018-04-18] MEDS: Iron Sucrose Inj 200 MG in Sodium Chlor 0.9% Inj 100 ML IV.SIG SCH (17:48)
[2018-04-18] MEDS ORDERED: THALIDOMIDE PO SCH (18:00)
[2018-04-18] MEDS ORDERED: DOXEPIN 6 MG PO SCH (21:00)
[2018-04-19] MEDS: Levothyroxine 125 MCG Tablet PO SCH ×2 (05:59→06:06)
[2018-04-19 07:27] LABS: Hematocrit 25.6 % (35.0-46.0); Hemoglobin 8.1 gm/dL (11.6-15.3)
[2018-04-19] MEDS: Loratadine 10 MG Tablet PO SCH (08:32)
[2018-04-19] MEDS: LETROZOLE 2.5 MG PO SCH (08:37)
[2018-04-19] MEDS ORDERED: DESVENLAFAXINE SUCCINATE 50 MG PO SCH (09:00)
[2018-04-19] MEDS ORDERED: LETROZOLE 2.5 MG PO SCH (09:00)
--- NOTE | 2018-04-19 09:48 | P.DCO ---
Diagnosis (1) Symptomatic anemia: Status: Acute Physical Therapy Order: Evaluate and treat, Improve ambulation and Strength and gait training Home Health Nursing Order: Medical education, Signs/symptoms of disease process, Medication education-adverse effect and Nursing assessment with vital signs Case Management Consult Case Management Consult-Home Health: Yes I have seen patient Nancy Watson on 04/19/18. My clinical findings support the need for the requested home health care services because: Limited mobility due to disease progression, Patient has SOB, Deconditioned with increased weakness, Limited ability to care for self and High risk of falls I certify that my clinical findings support that this patient is homebound because: Hx COPD - exertion dyspnea/weakness, Unsafe to leave home unassisted and Unable to use public transportation
[2018-04-19] MEDS ORDERED: Simethicone 80 MG Chew Tablet PO PRN (11:19)
--- NOTE | 2018-04-19 15:17 | P.PNGI ---
Subjective Interval history: Patient sitting up in bed Denies any abdominal pain or bleeding Denies nausea or vomiting, states tolerating diet well Post EGD <Eleonora Jimenez - Last Filed: 04/19/18 15:12> Physical Exam Vital signs: Vital Signs 04/18/18 16:00 04/18/18 17:55 04/18/18 19:42 Temperature 98.1 F 98.1 F Pulse Rate 84 80 96 H Respiratory Rate 20 18 Blood Pressure 106/55 L 144/70 H Pulse Oximetry 94 L 04/18/18 20:00 04/19/18 00:00 04/19/18 04:00 Temperature 98.1 F 98.3 F 98.0 F Pulse Rate 87 82 84 Respiratory Rate 18 20 16 Blood Pressure 134/63 118/65 138/65 Pulse Oximetry 95 95 96 04/19/18 08:00 04/19/18 08:31 04/19/18 12:00 Temperature 98.0 F 98.2 F Pulse Rate 79 82 84 Respiratory Rate 20 17 20 Blood Pressure 115/68 134/74 Pulse Oximetry 94 L 96 Intake & Output 04/18/18 04/19/18 04/19/18 18:59 06:59 18:59 Intake Total 150 / 150 110 / 110 Balance 150 / 150 110 / 110 Intake: IV 110 / 110 Venofer Inj 200 MG In NS Inj 110 / 110 100 ML @ 110 mls/hr IV.SIG Q24H [facility] Rx#:[id number] Anesthesia Amount 150 / 150 Other: # Voids 3 3 Date of Last Bowel Movement 04/18/18 # Bowel Movements 2 - Constitutional no acute distress - Routine HEENT Exam Head: Present: normocephalic - Routine Respiratory Exam Present: CTA bilaterally - Routine Cardiovascular Exam Present: RRR - Routine Abdominal Exam Present: soft, normoactive bowel sounds. Absent: tenderness - Routine Skin Exam Present: dry, warm - Routine Neurological Exam Present: alert <Eleonora Jimenez - Last Filed: 04/19/18 15:12> Vital signs: Vital Signs 04/19/18 15:48 04/19/18 20:00 04/19/18 20:14 Temperature 98.1 F 98.4 F Pulse Rate 89 89 86 Respiratory Rate 20 20 18 Blood Pressure 129/68 151/70 H Pulse Oximetry 95 96 91 L 04/20/18 00:00 04/20/18 04:00 04/20/18 08:00 Temperature 98.8 F 97.7 F 97.8 F Pulse Rate 85 82 89 Respiratory Rate Blood Pressure 138/67 101/51 L 142/72 H Pulse Oximetry 94 L 92 L 95 04/20/18 08:31 Temperature Pulse Rate 67 Respiratory Rate 16 Blood Pressure Pulse Oximetry Intake & Output 04/19/18 04/20/18 04/20/18 18:59 06:59 18:59 Intake Total 110 / 110 Output Total 3 / 3 Balance -3 / -3 110 / 110 Intake: IV 110 / 110 Venofer Inj 200 MG In NS Inj 110 / 110 100 ML @ 110 mls/hr IV.SIG ONCE ONE Rx#:[id number] Output: Urine Other: Date of Last Bowel Movement 04/19/18 04/19/18 04/20/18 # Bowel Movements 1 <Mohit Silva - Last Filed: 04/20/18 13:24> Results - Labs CBC & Chem 7: 04/19/18 06:33 04/16/18 11:10 Laboratory Results - last 24 hr 04/19/18 06:33 Hgb 8.1 L Hct 25.6 L <Eleonora Jimenez - Last Filed: 04/19/18 15:12> - Labs CBC & Chem 7: 04/19/18 06:33 04/16/18 11:10 <Mohit Silva - Last Filed: 04/20/18 13:24> Assessment and Plan (1) Symptomatic anemia Status: Acute Code(s): D64.9 - Anemia, unspecified - Plan This patient is a 68-year-old female with past medical history significant for hypertension, anxiety, breast cancer, cirrhosis, fatty liver, G6PD deficiency, gastral antral vascular ectasia, GERD, hypertension, hypothyroidism and hypercholesteremia. Surgical history significant for lumpectomy. This patient presented to [place] emergency room with complaints of shortness of breath. Of note, she also reports black stools over the last 10-15 years. Patient states she has been on iron supplementation for that time. Patient denies any noted active bleeding. States stools are always black. Patient denies abdominal pain nausea or vomiting. States she has chronic diarrhea for which he takes Imodium twice daily. Patient endorses biopsy of liver done at [facility] which resulted in diagnosis of cirrhosis due to fatty liver. Our service has been consulted to evaluate patient for anemia and possible endoscopic procedure. Anemia History of cirrhosis/fatty liver/G6 PD deficiency/gastral antral vascular ectasia Patient presents with report of shortness of breath. She endorses black stools , of note patient takes iron supplementation daily. WBC 7.4 hematocrit 22.6. Patient denies any obvious bleeding. Denies edema or abdominal distention. Total bilirubin 0.3 AST 32 ALT 28 alk phos 169 albumin 3.1 04/19/2018 Patient denies shortness of breath. Denies any active bleeding noted. Denies abdominal pain nausea or vomiting Post EGD 04/18/2018 reveal the following: Esophagus: Z line seen at 40 cm. Normal appearance with normal appearing esophageal mucosa Stomach: Direct and retroflex views obtained. 1 cm white based prepyloric ulcer seen. Antral erythema with edema consistent with GAVE, gastric antrum vascular ectasia. Spontaneous oozing seen from area of GAVE. ERBE with point probe used to ablate GAVE at gastric settings. About 70% of involved area treated. Retroflex in the stomach was normal, no hiatal hernia seen. Duodenum: Patchy erythema in bulb with small 3 mm white based ulcer seen in distal bulb. 2nd portion was normal. Hemoglobin 8.1 hematocrit 25.6 stable Plan -Diet as tolerated, high-fiber -Regular diet with G6PD precautions -PPI daily -Supportive care -Return in 6 weeks for EGD -Follow-up with advanced GI post discharge in 1 week -GI will sign off at this time, please notify for any further assistance Patient has been seen by myself and and this note is written on his behalf - Attending Attestation Dr. Silva <Eleonora Jimenez - Last Filed: 04/19/18 15:12> (1) Symptomatic anemia Status: Acute Code(s): D64.9 - Anemia, unspecified - Attending Attestation The patient was seen and examined. I agree with the assessment and recommendations above. <Mohit Silva - Last Filed: 04/20/18 13:24>
[2018-04-19] MEDS: Iron Sucrose Inj 200 MG in Sodium Chlor 0.9% Inj 100 ML IV.SIG SCH (16:52)
[2018-04-19] MEDS: Polyethylene Glycol 3350 17 GM Packet PO SCH (16:52)
--- NOTE | 2018-04-19 19:57 | P.PNIM ---
Subjective Interval history: Follow-up for symptomatic anemia, liver cirrhosis, gastric antral vascular ectasia. Ms. Watson is doing well. No acute concerns. Slept well. No fever, chills. No dyspnea, chest pain. Physical Exam Vital signs: Last Vital Signs Temp 98.1 F 04/19/18 15:48 Pulse 89 04/19/18 15:48 Resp 20 04/19/18 15:48 BP 129/68 04/19/18 15:48 Pulse Ox 95 04/19/18 15:48 Intake & Output 04/17/18 04/18/18 04/19/18 04/20/18 06:59 06:59 06:59 06:59 Intake Total 0 / 0 300 / 300 260 / 260 Balance 0 / 0 300 / 300 260 / 260 Weight 99.79 kg 99.7 kg Narrative: GENERAL: Alert, NAD. SKIN: Warm and dry. HEAD: Normocephalic. EYES: No scleral icterus. No injection or drainage. NECK: Supple, trachea midline. No JVD or lymphadenopathy. CARDIOVASCULAR: Regular rate and rhythm without murmurs, gallops, or rubs. RESPIRATORY: Breath sounds equal bilaterally. No accessory muscle use. GASTROINTESTINAL: Abdomen soft, non-tender, nondistended. MUSCULOSKELETAL: No cyanosis, or edema. BACK: Nontender without obvious deformity. No CVA tenderness. Results Labs CBC & Chem 7: 04/19/18 06:33 04/16/18 11:10 Assessment and Plan (1) Symptomatic anemia: Code(s): D64.9 - Anemia, unspecified Status: Acute Plan This patient is a 68 y/o F with a dx of HTN, dysplipidemia, hypothyroidism, anxiety, cirrhosis, breast cancer, g6pd def, GAVE (gastric antral vascular ectasia), who presents to the ER with complaints of shortness of breath. She says she has not drank alcohol or smoked cigarettes for nearly 15 yrs however over the past few days she started to drink and smoke cigarettes again because of her friends birthday and a cigar republican. She denies any recent exposure to substances that would trigger her G6PD. She was evaluated in the ED and a chest xray was done which did not show any significant abnormalities. Symptomatic anemia due to Acute GI bleed. 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 Prepyloric ulcer Duodenal ulcer Hx of G6PD deficiency GERD -Hgb 7.7 --> 7.4 --> 8.0 --> 8.1. -Consulted GI - patient underwent EGD which showed ulcers as well as GAVE related bleed. -Continue Protonix. Iron saturation 4.7%. Advised patient to take oral iron supplements with orange juice or vitamin C. Due to very low iron saturation, started patient on iron infusion with iron sucrose 200 mg daily for 3 days, last dose on 04/20/2018 (10AM). Dyspnea -2D echo shows normal ejection fraction 55-60%, mild aortic valve sclerosis. No clinical evidence of congestive heart failure. D/C Torsemide. No evidence of fluid overload. Hypertension Hypothyroidism -Currently normotensive. Blood pressure 129/68. We will consider restarting losartan. -Continue Levothyroxine. Patient can be discharged home tomorrow AM after iron infusion. Follow up with PCP, Hematology. Full code. Ambulation. Hold off using any pharmacological DVT prophylaxis due to GI bleed. Progress Note: Quality VTE Deep Vein Thrombosis/Pulmonary Embolism Present on Admission: Yes
[2018-04-20] MEDS: Levothyroxine 125 MCG Tablet PO SCH (06:02)
[2018-04-20 08:35] VITALS: PULSE 67; RESP 16
--- NOTE | 2018-04-20 08:48 | P.DS ---
Date of admission: 04/16/18 14:13 Primary care physician: UNKNOWN Attending physician on discharge: Ventura Lemus Anticipated date of discharge: 04/20/18 Brief History from admission: This patient is a 68 y/o F with a dx of htn, dld, hypothyroidism, anxiety, cirrhosis, breast cancer, g6pd def, gerd, who presents to the ER with complaints of shortness of breath. She says she has not drank alcohol or smoked cigarettes for nearly 15 yrs however over the past few days she started to drink and smoke cigarettes again because of her friends birthday and a cigar green party. She denies any recent exposure to substances that would trigger her G6PD. She reports black stools over the past 10-15 yrs since she was started on iron pills. She was evaluated in the ED and a chest xray was done which did not show any significant abnormalities. I was called to evaluate the patient. pmh htn, dld, hypothyroidism, anxiety, cirrhosis, breast cancer s/p lumpectomy and radiation, g6pd def, gerd surg hx lumpectomy, knee replacement, tonsils removed, dental surgery fam hx htn in mother social hx extensive tobacco and etoh use in the past. quit 15 yrs ago. Over the past week she had a few drinks and started smoked cigars two days ago. No substance abuse. Patient update on day of discharge: Follow-up visit symptomatic anemia. Patient seen and examined today eating her breakfast. Reports she is doing well. States she is waiting for her IV iron supplementation last dose so she can go home. Discussed with patient we held off on her BP medications as her blood pressure has been well within normal limits while in the hospital. Patient states that she has not been taking her blood pressure medications at home she has 2 BP readers that has been telling her that her blood pressure was fine. Patient states that when she was at [facility] she was placed on blood pressure medications because of the GAVE wear and she needs to take contraceptive medication that rises up her blood pressure. States that now that she is not taking that her blood pressures normalized. Discussed with patient that if ever she will restart the medication she will need to follow-up with her PCP to monitor it and restart BP meds. Verbalized understanding. Denies pain and discomfort. Denies SOB/ dyspnea. Denies chest pain, palpitations, headaches, dizziness. Denies fevers, chills, n/v/d. Denies hematuria, dysuria. DS: Diagnosis - Discharge Diagnosis (1) Symptomatic anemia Status: Acute DS: Medications - Discharge Medications Prescriptions: ascorbic acid (vitamin C) [Vitamin C] 250 mg PO TID #90 tab pantoprazole 40 mg PO BID #60 tab polyethylene glycol 3350 [Miralax] 17 g PO DAILY 30 Days #30 each temazepam 7.5 mg PO HS PRN #30 cap PRN Reason: Insomnia DS: Summary Hospital Course: Patient is a 68 y/o F with a dx of HTN, dysplipidemia, hypothyroidism, anxiety, cirrhosis, breast cancer, g6pd def, GAVE (gastric antral vascular ectasia), who presents to the ER with complaints of shortness of breath. She says she has not drank alcohol or smoked cigarettes for nearly 15 yrs however over the past few days she started to drink and smoke cigarettes again because of her friends birthday and a cigar green party. She denies any recent exposure to substances that would trigger her G6PD. She was evaluated in the ED and a chest xray was done which did not show any significant abnormalities. Patient has symptomatic anemia secondary to acute GI bleed. She also has a history of gastric antral vascular ectasia with active bleeding as well as prepyloric ulcer, duodenal ulcer with history of C6 PD deficiency and GERD. Her hemoglobin was 7.7 and patient underwent EGD that showed ulcers as well as gave related bleed. She got Protonix. Her iron saturation was 4.7%, advised to take oral iron supplementations with orange juice or vitamin C. She also had iron sucrose 200 daily for 3 days which has been completed today. Patient was found to have dyspnea on initial admission were in her 2D echo showed normal ejection fraction of 55-60%, mild aortic valve sclerosis. No clinical evidence of congestive heart failure. She has history of hypertension, currently she was normotensive with blood pressures in the 100s-120s. She was on losartan at home but we will not restart for now. This is been extensively discussed with patient that she should consider following up with PCP. States that she wanted to change her PCP to Dr. Cormier in the area. States that she is not going to [facility] for PCP follow-up. Discussed with patient that she would need to have her BP monitored by her new PCP also. For her hypothyroidism she will continue her levothyroxine. Patient has met maximal benefits of hospitalization. Clinically stable for discharge. - Time Spent with Patient Total time spent providing and/or coordinating discharge services: Less than 30 minutes - Quality: VTE Deep Vein Thrombosis/Pulmonary Embolism Present on Admission: Yes Exam Vital signs: Vital Signs 04/19/18 12:00 04/19/18 15:48 04/19/18 20:00 Temperature 98.2 F 98.1 F 98.4 F Pulse Rate 84 89 89 Respiratory Rate 20 20 20 Blood Pressure 134/74 129/68 151/70 H Pulse Oximetry 96 95 96 04/19/18 20:14 04/20/18 00:00 04/20/18 04:00 Temperature 98.8 F 97.7 F Pulse Rate 86 85 82 Respiratory Rate 18 20 20 Blood Pressure 138/67 101/51 L Pulse Oximetry 91 L 94 L 92 L 04/20/18 08:31 Temperature Pulse Rate 67 Respiratory Rate 16 Blood Pressure Pulse Oximetry Intake & Output 04/19/18 04/20/18 04/20/18 18:59 06:59 18:59 Output Total 3 / 3 Balance -3 / -3 Output: Urine 3 / 3 Other: Date of Last Bowel Movement 04/19/18 04/19/18 # Bowel Movements 1 Narrative: GENERAL: This is a well-nourished, well-developed patient, in no apparent distress. SKIN: Warm and dry HEENT: Normocephalic. Pupils equal round and reactive. Nose without bleeding. Airway patent. NECK: Trachea midline. CARDIOVASCULAR: Regular rate and rhythm without murmurs, gallops, or rubs. RESPIRATORY: Clear to auscultation. Breath sounds equal bilaterally. No wheezes , rales, or rhonchi. GASTROINTESTINAL: Abdomen soft, non-tender, nondistended. Bowel Sounds normoactive x4. MUSCULOSKELETAL: Extremities without clubbing, cyanosis, or edema. NEUROLOGICAL: Awake and alert. No focal neuro deficit. Moves all extremities. Normal speech. Results Procedures completed during hospitalization: EGD 04/18/19 Completed studies during hospitalization: Pending at discharge 04/18/18 12:51 Surgical [PTH] Routine - Impressions ITS Impressions Chest X-Ray 04/16/18 11:06 CONCLUSION: Mild hypoinflation of the lungs. No evidence of airspace consolidation. Discharge Plan - Discharge Disposition Patient Disposition: Disch /Home Health Service - Discharge Condition Condition: Good - Discharge Order Discharge Orders: Discharge Order (Routine); Ordered 04/20/18 Ordered By: Jonas Carrizales ED Use Only Admit Order (Routine); Ordered 04/16/18 Ordered By: Rosy Berman - Discharge Details Anticipated Discharge Date: 04/20/18 - Physicians Team Primary Care Provider: UNKNOWN, Attending Provider: Ventura Lemus Other Providers: Mohit Silva MD
[2018-04-20] MEDS: Polyethylene Glycol 3350 17 GM Packet PO SCH (09:20)
[2018-04-20] MEDS: LETROZOLE 2.5 MG PO SCH (09:20)
[2018-04-20] MEDS: Loratadine 10 MG Tablet PO SCH (09:20)
[2018-04-20 09:34] VITALS: BP 142/72; TEMP 97.8
[2018-04-20] MEDS ORDERED: Iron Sucrose Inj 200 MG in Sodium Chlor 0.9% Inj 100 ML IV.SIG ONE (10:00)
[2018-04-20 11:23] VITALS: O2SAT 95
== END 2018-04-20 11:30 | disposition home health service (06) ==
LOC: NEPC 10:34 → NEDA 10:34 → N05 15:47
PROVIDERS: ADMIT Hospitalist; ATTEND Hospitalist
PROC: PANENDO (2018-04-18 10:30)